=== PATIENT | female | born 1990 | race Caucasian/White ===

== ENCOUNTER 2018-02-19 13:20 | Emergency (ER) | payer SELFPAY ==
[2018-02-19] MEDS ORDERED: Sodium Chloride 0.9% 10 ML Syringe FLUSH PRN (14:09)
[2018-02-19] MEDS ORDERED: Sodium Chloride 0.9% 2.5 ML Syringe FLUSH PRN (14:09)
[2018-02-19] MEDS ORDERED: Lactated Ringers 1,000 ML IV ONE (14:10)
--- NOTE | 2018-02-19 14:13 | EDM.PDOC ---
ED HPI GENERAL MEDICAL PROBLEM - General Chief Complaint: Abdominal Pain Stated Complaint: R SIDE PAIN Time Seen by Provider: 02/19/18 13:44 Source of Information: Reports: Patient History Limitations: Reports: No Limitations - History of Present Illness INITIAL COMMENTS - FREE TEXT/NARRATIVE: History of present illness: []Patient started having right lower abdominal pain yesterday has been worsening with nausea. She states cramping coming in waves nonradiating. Her whole right side she has had a cholecystectomy but still has her appendix. Patient denies any vomiting, diarrhea, fevers, chills. urinary symptoms or vaginal pain. Review of systems: As per history of present illness and below otherwise all systems reviewed and negative. Past medical history: As per history of present illness and as reviewed below otherwise noncontributory. Surgical history: As per history of present illness and as reviewed below otherwise noncontributory. Social history: No reported history of drug or alcohol abuse. Family history: As per history of present illness and as reviewed below otherwise noncontributory. Physical exam: General: Well developed, well nourished in NAD HEENT: Atraumatic, normocephalic, pupils reactive, negative for conjunctival pallor or scleral icterus, mucous membranes moist, throat clear, neck supple, nontender, trachea midline. Lungs: Clear to auscultation, breath sounds equal bilaterally, chest nontender. Heart: S1S2, regular, negative for clicks, rubs, or JVD. Abdomen: Remarkable active bowel sounds Soft, nondistended, tender in the right mid quadrant without rebound or guarding. Negative for masses or hepatosplenomegaly. Negative for costovertebral tenderness. Pelvis: Stable nontender. Genitourinary: Patient currently a menses there is no cervical motion tenderness or masses initiated Rectal: Deferred. Extremities: Atraumatic, negative for cords or calf pain. Neurovascular unremarkable. Neuro: Awake, alert, oriented. Cranial nerves II through XII unremarkable. Cerebellum unremarkable. Motor and sensory unremarkable throughout. Exam nonfocal. Diagnostics: []CBC normal, chemistry normal, UA normal, negative, CT abdomen and pelvis normal appendix no acute findings including no free fluid and normal ovaries Therapeutics: []Morphine, Zofran and IV fluid given with alleviation of pain. Impression: []Gardnerella BV Plan: []Flagyl as directed Tylenol Motrin for pain warm packs to abdomen follow-up with [facility] Definitive disposition and diagnosis as appropriate pending reevaluation and review of above. Right Lower Abdominal Pain Score (Numeric/FACES): 8 - Related Data Allergies Allergy/AdvReac Type Severity Reaction Status Date / Time amoxicillin Allergy Rash Verified 02/19/18 14:00 codeine Allergy Rash Verified 02/19/18 14:00 Home Meds: Home Meds metroNIDAZOLE [Flagyl] 500 mg PO Q12H #20 tab 02/19/18 [Rx] Past Medical History - Past Surgical History GI Surgical History: Reports: Cholecystectomy Social & Family History - Family History Family Medical History: Noncontributory - Tobacco Use Smoking Status *Q: Current Every Day Smoker Years of Tobacco use: 3 Packs/Tins Daily: 0.5 - Caffeine Use Caffeine Use: Reports: Coffee, Energy Drinks, Soda - Recreational Drug Use Recreational Drug Use: No ED ROS GENERAL - Review of Systems Review Of Systems: See Below (See history of present illness) ED EXAM, GI/ABD - Physical Exam Exam: See Below (See history of present illness) Course - Vital Signs Last Recorded V/S: Last Vital Signs Temp 98.1 F 02/19/18 13:54 Pulse 68 02/19/18 14:52 Resp 16 02/19/18 14:52 BP 130/73 02/19/18 14:52 Pulse Ox 99 02/19/18 14:52 - Orders/Labs/Meds Orders: Active Orders 24 hr Category Date Time Status NPO [Nothing Per Oral Diet] [DIET] Diet 02/19/18 Dinner Active CHLAMYDIA AND GONORRHEA BY TMA Stat Lab 02/19/18 16:35 Received HCG QUALITATIVE,URINE [URCHEM] Stat Lab 02/19/18 13:30 Ordered UA W/MICROSCOPIC [URIN] Stat Lab 02/19/18 13:30 Ordered Sodium Chloride 0.9% [Saline Flush] Med 02/19/18 14:09 Active 10 ml FLUSH ASDIRECTED PRN Sodium Chloride 0.9% [Saline Flush] Med 02/19/18 14:09 Active 2.5 ml FLUSH ASDIRECTED PRN Saline Lock Insert [OM.PC] Stat Oth 02/19/18 14:09 Ordered Medication Orders Sodium Chloride (Saline Flush) 10 ml FLUSH ASDIRECTED PRN PRN Reason: Keep Vein Open Sodium Chloride (Saline Flush) 2.5 ml FLUSH ASDIRECTED PRN PRN Reason: Keep Vein Open Labs: Laboratory Tests 02/19/18 02/19/18 02/19/18 Range/Units 13:30 13:30 14:20 WBC 7.93 (4.0-11.0) K/uL RBC 4.59 (4.30-5.90) M/uL Hgb 12.8 (12.0-16.0) g/dL Hct 38.3 (36.0-46.0) % MCV 83.4 (80.0-98.0) fL MCH 27.9 (27.0-32.0) pg MCHC 33.4 (31.0-37.0) g/dL RDW Std Deviation 42.9 (28.0-62.0) fl RDW Coeff of Arlene 14 (11.0-15.0) % Plt Count 281 (150-400) K/uL MPV 9.10 (7.40-12.00) fL Neut % (Auto) 61.4 (48.0-80.0) % Lymph % (Auto) 27.5 (16.0-40.0) % [place] % (Auto) 8.4 (0.0-15.0) % Eos % (Auto) 1.6 (0.0-7.0) % Baso % (Auto) 1.1 (0.0-1.5) % Neut # (Auto) 4.9 (1.4-5.7) K/uL Lymph # (Auto) 2.2 (0.6-2.4) K/uL [place] # (Auto) 0.7 (0.0-0.8) K/uL Eos # (Auto) 0.1 (0.0-0.7) K/uL Baso # (Auto) 0.1 (0.0-0.1) K/uL Nucleated RBC % 0.0 /100WBC Nucleated RBCs # 0 K/uL Sodium (136-145) mmol/L Potassium (3.5-5.1) mmol/L Chloride (98-107) mmol/L Carbon Dioxide (21.0-32.0) mmol/L BUN (7.0-18.0) mg/dL Creatinine (0.6-1.0) mg/dL Est Cr Clr Drug Dosing mL/min Estimated GFR (MDRD) ml/min Glucose (74-106) mg/dL Calcium (8.5-10.1) mg/dL Total Bilirubin (0.2-1.0) mg/dL AST (15-37) IU/L ALT (14-63) IU/L Alkaline Phosphatase (46-116) U/L Total Protein (6.4-8.2) g/dL Albumin (3.4-5.0) g/dL Globulin (2.0-3.5) g/dL Albumin/Globulin Ratio (1.3-2.8) Lipase (73-393) U/L Urine Color YELLOW Urine Appearance CLEAR Urine pH 6.0 (5.0-8.0) Ur Specific [place] <= 1.005 (1.001-1.035) Urine Protein NEGATIVE (NEGATIVE) mg/dL Urine Glucose (UA) NEGATIVE (NEGATIVE) mg/dL Urine Ketones NEGATIVE (NEGATIVE) mg/dL Urine Occult Blood LARGE H (NEGATIVE) Urine Nitrite NEGATIVE (NEGATIVE) Urine Bilirubin NEGATIVE (NEGATIVE) Urine Urobilinogen 0.2 (<2.0) EU/dL Ur Leukocyte Esterase NEGATIVE (NEGATIVE) Urine RBC 4-7 (0-2/HPF) Urine WBC 0-1 (0-5/HPF) Ur Epithelial Cells FEW (NONE-FEW) Urine Bacteria RARE (NEGATIVE) Urine HCG, Qual NEGATIVE (NEGATIVE) Roopa species DNA (NEGATIVE) Gardnerella DNA Probe (NEGATIVE) Trichomonas DNA Probe (NEGATIVE) 02/19/18 02/19/18 Range/Units 14:20 16:35 WBC (4.0-11.0) K/uL RBC (4.30-5.90) M/uL Hgb (12.0-16.0) g/dL Hct (36.0-46.0) % MCV (80.0-98.0) fL MCH (27.0-32.0) pg MCHC (31.0-37.0) g/dL RDW Std Deviation (28.0-62.0) fl RDW Coeff of Arlene (11.0-15.0) % Plt Count (150-400) K/uL MPV (7.40-12.00) fL Neut % (Auto) (48.0-80.0) % Lymph % (Auto) (16.0-40.0) % [place] % (Auto) (0.0-15.0) % Eos % (Auto) (0.0-7.0) % Baso % (Auto) (0.0-1.5) % Neut # (Auto) (1.4-5.7) K/uL Lymph # (Auto) (0.6-2.4) K/uL [place] # (Auto) (0.0-0.8) K/uL Eos # (Auto) (0.0-0.7) K/uL Baso # (Auto) (0.0-0.1) K/uL Nucleated RBC % /100WBC Nucleated RBCs # K/uL Sodium 139 (136-145) mmol/L Potassium 4.1 (3.5-5.1) mmol/L Chloride 107 (98-107) mmol/L Carbon Dioxide 26.1 (21.0-32.0) mmol/L BUN 9 (7.0-18.0) mg/dL Creatinine 0.7 (0.6-1.0) mg/dL Est Cr Clr Drug Dosing 106.70 mL/min Estimated GFR (MDRD) > 60.0 ml/min Glucose 86 (74-106) mg/dL Calcium 8.7 (8.5-10.1) mg/dL Total Bilirubin 0.2 (0.2-1.0) mg/dL AST 14 L (15-37) IU/L ALT 21 (14-63) IU/L Alkaline Phosphatase 56 (46-116) U/L Total Protein 6.7 (6.4-8.2) g/dL Albumin 3.3 L (3.4-5.0) g/dL Globulin 3.4 (2.0-3.5) g/dL Albumin/Globulin Ratio 1.0 L (1.3-2.8) Lipase 88 (73-393) U/L Urine Color Urine Appearance Urine pH (5.0-8.0) Ur Specific [place] (1.001-1.035) Urine Protein (NEGATIVE) mg/dL Urine Glucose (UA) (NEGATIVE) mg/dL Urine Ketones (NEGATIVE) mg/dL Urine Occult Blood (NEGATIVE) Urine Nitrite (NEGATIVE) Urine Bilirubin (NEGATIVE) Urine Urobilinogen (<2.0) EU/dL Ur Leukocyte Esterase (NEGATIVE) Urine RBC (0-2/HPF) Urine WBC (0-5/HPF) Ur Epithelial Cells (NONE-FEW) Urine Bacteria (NEGATIVE) Urine HCG, Qual (NEGATIVE) Roopa species DNA NEGATIVE (NEGATIVE) Gardnerella DNA Probe POSITIVE H (NEGATIVE) Trichomonas DNA Probe NEGATIVE (NEGATIVE) Meds: Medications Generic Name Dose Route Start Last Admin Trade Name Freq PRN Reason Stop Dose Admin Sodium Chloride 10 ml 02/19/18 14:09 Saline Flush FLUSH ASDIRECTED PRN Keep Vein Open Sodium Chloride 2.5 ml 02/19/18 14:09 Saline Flush FLUSH ASDIRECTED PRN Keep Vein Open Discontinued Medications Generic Name Dose Route Start Last Admin Trade Name Freq PRN Reason Stop Dose Admin Lactated Ringer's 1,000 mls @ 999 mls/hr 02/19/18 14:10 02/19/18 14:39 Ringers, Lactated IV 02/19/18 15:10 999 mls/hr .BOLUS ONE Administration Iopamidol 100 ml 02/19/18 15:38 02/19/18 15:39 Isovue Multipack-370 (76%) IVPUSH 02/19/18 15:39 100 ml ONETIME ONE Administration Morphine Sulfate 4 mg 02/19/18 14:29 02/19/18 14:44 Morphine IVPUSH 02/19/18 14:30 4 mg ONETIME ONE Administration Ondansetron HCl 4 mg 02/19/18 14:29 02/19/18 14:44 Zofran IVPUSH 02/19/18 14:30 4 mg ONETIME ONE Administration Departure - Departure Time of Disposition: 18:00 Disposition: Home, Self-Care 01 Condition: Good Clinical Impression: Bacterial vaginosis - Discharge Information Prescriptions: metroNIDAZOLE [Flagyl] 500 mg PO Q12H #20 tab Referrals: PCP,None [Primary Care Provider] - Forms: ED Department Discharge Additional Instructions: The following information is given to patients seen in the emergency department who are being discharged to home. This information is to outline your options for follow-up care. We provide all patients seen in our emergency department with a follow-up referral. The need for follow-up, as well as the timing and circumstances, are variable depending upon the specifics of your emergency department visit. If you don't have a primary care physician on staff, we will provide you with a referral. We always advise you to contact your personal physician following an emergency department visit to inform them of the circumstance of the visit and for follow-up with them and/or the need for any referrals to a consulting specialist. The emergency department will also refer you to a specialist when appropriate. This referral assures that you have the opportunity for follow-up care with a specialist. All of these measure are taken in an effort to provide you with optimal care, which includes your follow-up. Under all circumstances we always encourage you to contact your private physician who remains a resource for coordinating your care. When calling for follow-up care, please make the office aware that this follow-up is from your recent emergency room visit. If for any reason you are refused follow-up, please contact the [facility] Emergency Department at and asked to speak to the emergency department charge nurse. Flagyl as directed Tylenol and Motrin for pain warm packs to abdomen follow-up with [facility] - [facility] [address] [place] [address] - My Orders Last 24 Hours: My Active Orders 02/19/18 13:30 HCG QUALITATIVE,URINE [URCHEM] Stat UA W/MICROSCOPIC [URIN] Stat 02/19/18 14:09 Sodium Chloride 0.9% [Saline Flush] 10 ml FLUSH ASDIRECTED PRN Sodium Chloride 0.9% [Saline Flush] 2.5 ml FLUSH ASDIRECTED PRN Saline Lock Insert [OM.PC] Stat 02/19/18 16:35 CHLAMYDIA AND GONORRHEA BY TMA Stat 02/19/18 Dinner NPO [Nothing Per Oral Diet] [DIET] - Assessment/Plan Last 24 Hours: My Active Orders 02/19/18 13:30 HCG QUALITATIVE,URINE [URCHEM] Stat UA W/MICROSCOPIC [URIN] Stat 02/19/18 14:09 Sodium Chloride 0.9% [Saline Flush] 10 ml FLUSH ASDIRECTED PRN Sodium Chloride 0.9% [Saline Flush] 2.5 ml FLUSH ASDIRECTED PRN Saline Lock Insert [OM.PC] Stat 02/19/18 16:35 CHLAMYDIA AND GONORRHEA BY TMA Stat 02/19/18 Dinner NPO [Nothing Per Oral Diet] [DIET]
[2018-02-19] MEDS ORDERED: Ondansetron 4 MG/2 ML SDV IVPUSH ONE (14:29)
[2018-02-19] MEDS ORDERED: Morphine 4 MG/ML Syringe IVPUSH ONE (14:29)
[2018-02-19 14:44] LABS: CHLORIDE,CL 107 mmol/L (98-107); SODIUM,NA 139 mmol/L (136-145)
[2018-02-19] MEDS ORDERED: Iopamidol 755 MG/ML 500 ML Multipack Bottle IVPUSH ONE (15:38)
--- NOTE | 2018-02-19 16:01 | CT ---
CT of the abdomen and pelvis with contrast. HISTORY: Pain TECHNIQUE: Axial CT images were obtained of the abdomen and pelvis following administration of 100 mL of Isovue-370 in the right hand without complication. Coronal and sagittal reconstructions obtained. FINDINGS: The lung bases are clear, no pleural effusion. The liver, spleen, adrenal glands, and pancreas appear normal. Cholecystectomy. No retroperitoneal ly mphadenopathy or abdominal ascites. The kidneys enhance and function symmetrically without evidence of obstructive uropathy. The large and small bowel are normal in caliber without evidence of obstruction. No focal pericolonic inflammation or stranding. The urinary bladder is normal. No pelvic lymphadenopathy or free pelvic f luid. Uterus and ovaries appear normal. No suspicious osseous abnormalities identified. IMPRESSION: No acute findings within the abdomen or pelvis.
== END 2018-02-19 18:16 | disposition home or self-care (01) ==
LOC: MW.ED 13:20
DX: N76.0 Acute vaginitis (principal); B96.89 Other specified bacterial agents as the cause of diseases classified elsewhere; F17.210 Nicotine dependence, cigarettes, uncomplicated; Z90.49 Acquired absence of other specified parts of digestive tract; Z88.1 Allergy status to other antibiotic agents; Z88.5 Allergy status to narcotic agent
CPT/HCPCS: 36415; 74177; 80053; 81001; 81025; 83690; 85025; 87480; 87491; 87510; 87591; 87660; 96365; 96375; 99284; J2270; J2405; J7120; Q9967; 99283

== ENCOUNTER 2018-02-25 10:26 | Emergency (ER) | payer SELFPAY ==
[2018-02-25] MEDS: Sodium Chloride 0.9% 500 ML IV SCH (10:54)
[2018-02-25] MEDS: Ondansetron 4 MG/2 ML SDV IVPUSH ONE (10:54)
--- NOTE | 2018-02-25 11:35 | EDM.PDOC ---
ED HPI GENERAL MEDICAL PROBLEM - General Chief Complaint: Gastrointestinal Problem Stated Complaint: VOMITING Time Seen by Provider: 02/25/18 11:33 Source of Information: Reports: Patient - History of Present Illness INITIAL COMMENTS - FREE TEXT/NARRATIVE: HISTORY AND PHYSICAL: History of present illness: [Patient presents with vomiting and diarrhea over the last day or 2, she states she has been vomiting blood however there is been no complaint of nausea or vomiting here in the emergency room on an extended stay. She has had a couple of loose stools and guaiac testing was positive for trace blood no fever chills sweats no chest pain shortness breath headache dizziness or palpitation no urine symptoms ] Review of systems: As per history of present illness and below otherwise all systems reviewed and negative. Past medical history: As per history of present illness and as reviewed below otherwise noncontributory. Surgical history: As per history of present illness and as reviewed below otherwise noncontributory. Social history: No reported history of drug or alcohol abuse. Family history: As per history of present illness and as reviewed below otherwise noncontributory. Physical exam: HEENT: Atraumatic, normocephalic, pupils reactive, negative for conjunctival pallor or scleral icterus, mucous membranes moist, throat clear, neck supple, nontender, trachea midline. Lungs: Clear to auscultation, breath sounds equal bilaterally, chest nontender. Heart: S1S2, regular, negative for clicks, rubs, or JVD. Abdomen: Soft, nondistended, tender right and left lower quadrant mild guarding no rebound Negative for masses or hepatosplenomegaly. Negative for costovertebral tenderness. Pelvis: Stable nontender. Genitourinary: Deferred. Rectal: guaiac positive external exam no mass scarred lesion internal exam no mass scar or lesion remities: Atraumatic, negative for cords or calf pain. Neurovascular unremarkable. Neuro: Awake, alert, oriented. Cranial nerves II through XII unremarkable. Cerebellum unremarkable. Motor and sensory unremarkable throughout. Exam nonfocal. Diagnostics: [CBC CMP UA hCG urine culture INR CT abdomen pelvis with contrast] Guaiac stool cultures ova and parasites C. difficile Therapeutics: [Normal saline 500 mL Proton X 80 mg IV Zofran 8 mg IV Cipro 500 by mouth twice a day #20 no refill Zofran Omeprazole ] Impression Abdominal pain Vomiting Diarrhea gastroenteritis Trace positive guaiac UTI Definitive disposition and diagnosis as appropriate pending reevaluation and review of above. Abdomen Pain Score (Numeric/FACES): 6 - Related Data Allergies Allergy/AdvReac Type Severity Reaction Status Date / Time amoxicillin Allergy Rash Verified 02/25/18 10:41 codeine Allergy Rash Verified 02/25/18 10:41 Home Meds: Home Meds metroNIDAZOLE [Flagyl] 500 mg PO Q12H #20 tab 02/19/18 [Rx] Past Medical History - Past Surgical History GI Surgical History: Reports: Cholecystectomy Social & Family History - Family History Family Medical History: Noncontributory - Tobacco Use Smoking Status *Q: Former Smoker Years of Tobacco use: 3 Packs/Tins Daily: 0.5 Used Tobacco, but Quit: Yes Month/Year Tobacco Last Used: 2.5 years quit - Caffeine Use Caffeine Use: Reports: Coffee, Energy Drinks, Soda, Tea - Recreational Drug Use Recreational Drug Use: Yes Drug Use in Last 12 Months: Yes Recreational Drug Use Frequency: Socially ED ROS GENERAL - Review of Systems Review Of Systems: ROS reveals no pertinent complaints other than HPI. ED EXAM, GENERAL - Physical Exam Exam: See Below Course - Vital Signs Last Recorded V/S: Last Vital Signs Temp 98.7 F 02/25/18 10:42 Pulse 87 02/25/18 10:42 Resp 16 02/25/18 10:42 BP 121/70 02/25/18 10:42 Pulse Ox 98 02/25/18 10:42 - Orders/Labs/Meds Orders: Active Orders 24 hr Category Date Time Status CULTURE STOOL + CAMPY+SHIGATOX [RM] Stat Lab 02/25/18 11:33 Ordered CULTURE URINE [RM] Stat Lab 02/25/18 10:55 Ordered Clostridium Difficile [CDIFF TOX A+B] [OP] Stat Lab 02/25/18 11:36 Ordered Guaiac [OCCULT BLOOD DIAGNOSTIC] [OP] Stat Lab 02/25/18 11:36 Ordered HCG QUALITATIVE,URINE [URCHEM] Stat Lab 02/25/18 10:55 Ordered OVA & PARASITES BY IMMUNOASSAY [MREF] Stat Lab 02/25/18 11:33 Received UA W/MICROSCOPIC [URIN] Stat Lab 02/25/18 10:55 Ordered Sodium Chloride 0.9% [Normal Saline] 500 ml Med 02/25/18 10:45 Active IV STAT Medication Orders Sodium Chloride (Normal Saline) 500 mls @ 999 mls/hr IV STAT REBEKAH Last Admin: 02/25/18 10:54 Dose: 999 mls/hr Labs: Laboratory Tests 02/25/18 02/25/18 02/25/18 Range/Units 10:55 10:55 10:55 WBC 6.58 (4.0-11.0) K/uL RBC 5.07 (4.30-5.90) M/uL Hgb 14.1 (12.0-16.0) g/dL Hct 41.8 (36.0-46.0) % MCV 82.4 (80.0-98.0) fL MCH 27.8 (27.0-32.0) pg MCHC 33.7 (31.0-37.0) g/dL RDW Std Deviation 42.9 (28.0-62.0) fl RDW Coeff of Arlene 14 (11.0-15.0) % Plt Count 307 (150-400) K/uL MPV 9.20 (7.40-12.00) fL Add Manual Diff YES Neutrophils % (Manual) 56 (48.0-80.0) % Band Neutrophils % 2 % Lymphocytes % (Manual) 30 (16.0-40.0) % Monocytes % (Manual) 10 (0.0-15.0) % Eosinophils % (Manual) 1 (0.0-7.0) % Basophils % (Manual) 1 (0.0-1.5) % Nucleated RBC % 0.0 /100WBC Absolute Seg Neuts 3.7 (1.4-5.7) Band Neutrophils # 0.1 Lymphocytes # (Manual) 2.0 (0.6-2.4) Monocytes # (Manual) 0.7 (0.0-0.8) Eosinophils # (Manual) 0.1 (0.0-0.7) Basophils # (Manual) 0.1 (0.0-0.1) Nucleated RBCs # 0 K/uL INR Sodium (136-145) mmol/L Potassium (3.5-5.1) mmol/L Chloride (98-107) mmol/L Carbon Dioxide (21.0-32.0) mmol/L BUN (7.0-18.0) mg/dL Creatinine (0.6-1.0) mg/dL Est Cr Clr Drug Dosing mL/min Estimated GFR (MDRD) ml/min Glucose (74-106) mg/dL Calcium (8.5-10.1) mg/dL Total Bilirubin (0.2-1.0) mg/dL AST (15-37) IU/L ALT (14-63) IU/L Alkaline Phosphatase (46-116) U/L Total Protein (6.4-8.2) g/dL Albumin (3.4-5.0) g/dL Globulin (2.0-3.5) g/dL Albumin/Globulin Ratio (1.3-2.8) Urine Color YELLOW Urine Appearance CLEAR Urine pH 5.5 (5.0-8.0) Ur Specific [place] >= 1.030 (1.001-1.035) Urine Protein TRACE (NEGATIVE) mg/dL Urine Glucose (UA) NEGATIVE (NEGATIVE) mg/dL Urine Ketones NEGATIVE (NEGATIVE) mg/dL Urine Occult Blood MODERATE (NEGATIVE) Urine Nitrite NEGATIVE (NEGATIVE) Urine Bilirubin NEGATIVE (NEGATIVE) Urine Urobilinogen 0.2 (<2.0) EU/dL Ur Leukocyte Esterase TRACE (NEGATIVE) Urine RBC 0-2 (0-2/HPF) Urine WBC 0-2 (0-5/HPF) Ur Epithelial Cells MANY (NONE-FEW) Urine Bacteria FEW (NEGATIVE) Urine HCG, Qual NEGATIVE (NEGATIVE) 02/25/18 02/25/18 Range/Units 10:55 10:55 WBC (4.0-11.0) K/uL RBC (4.30-5.90) M/uL Hgb (12.0-16.0) g/dL Hct (36.0-46.0) % MCV (80.0-98.0) fL MCH (27.0-32.0) pg MCHC (31.0-37.0) g/dL RDW Std Deviation (28.0-62.0) fl RDW Coeff of Arlene (11.0-15.0) % Plt Count (150-400) K/uL MPV (7.40-12.00) fL Add Manual Diff Neutrophils % (Manual) (48.0-80.0) % Band Neutrophils % % Lymphocytes % (Manual) (16.0-40.0) % Monocytes % (Manual) (0.0-15.0) % Eosinophils % (Manual) (0.0-7.0) % Basophils % (Manual) (0.0-1.5) % Nucleated RBC % /100WBC Absolute Seg Neuts (1.4-5.7) Band Neutrophils # Lymphocytes # (Manual) (0.6-2.4) Monocytes # (Manual) (0.0-0.8) Eosinophils # (Manual) (0.0-0.7) Basophils # (Manual) (0.0-0.1) Nucleated RBCs # K/uL INR 1.02 Sodium 140 (136-145) mmol/L Potassium 4.0 (3.5-5.1) mmol/L Chloride 107 (98-107) mmol/L Carbon Dioxide 23.8 (21.0-32.0) mmol/L BUN 14 (7.0-18.0) mg/dL Creatinine 0.8 (0.6-1.0) mg/dL Est Cr Clr Drug Dosing 89.60 mL/min Estimated GFR (MDRD) > 60.0 ml/min Glucose 96 (74-106) mg/dL Calcium 8.6 (8.5-10.1) mg/dL Total Bilirubin 0.2 (0.2-1.0) mg/dL AST 49 H (15-37) IU/L ALT 103 H (14-63) IU/L Alkaline Phosphatase 66 (46-116) U/L Total Protein 7.8 (6.4-8.2) g/dL Albumin 3.6 (3.4-5.0) g/dL Globulin 4.2 H (2.0-3.5) g/dL Albumin/Globulin Ratio 0.9 L (1.3-2.8) Urine Color Urine Appearance Urine pH (5.0-8.0) Ur Specific [place] (1.001-1.035) Urine Protein (NEGATIVE) mg/dL Urine Glucose (UA) (NEGATIVE) mg/dL Urine Ketones (NEGATIVE) mg/dL Urine Occult Blood (NEGATIVE) Urine Nitrite (NEGATIVE) Urine Bilirubin (NEGATIVE) Urine Urobilinogen (<2.0) EU/dL Ur Leukocyte Esterase (NEGATIVE) Urine RBC (0-2/HPF) Urine WBC (0-5/HPF) Ur Epithelial Cells (NONE-FEW) Urine Bacteria (NEGATIVE) Urine HCG, Qual (NEGATIVE) Meds: Medications Generic Name Dose Route Start Last Admin Trade Name Freq PRN Reason Stop Dose Admin Sodium Chloride 500 mls @ 999 mls/hr 02/25/18 10:45 02/25/18 10:54 Normal Saline IV 999 mls/hr STAT REBEKAH Administration Discontinued Medications Generic Name Dose Route Start Last Admin Trade Name Freq PRN Reason Stop Dose Admin Morphine Sulfate 2 mg 02/25/18 12:58 02/25/18 13:05 Morphine IVPUSH 02/25/18 12:59 2 mg ONETIME ONE Administration Ondansetron HCl 8 mg 02/25/18 10:39 02/25/18 10:54 Zofran IVPUSH 02/25/18 10:40 8 mg ONETIME ONE Administration Pantoprazole Sodium 80 mg 02/25/18 11:25 02/25/18 11:40 Protonix Iv IVPUSH 02/25/18 11:26 80 mg .BOLUS ONE Administration Departure - Departure Time of Disposition: 13:42 Disposition: Home, Self-Care 01 Condition: Good Clinical Impression: Gastroenteritis, UTI, Urinary tract infectious disease - Discharge Information Referrals: PCP,None [Primary Care Provider] - Forms: ED Department Discharge Additional Instructions: Medication as prescribed Return if symptoms persist or worsen Follow-up with primary care in 2 weeks sooner as needed The following information is given to patients seen in the emergency department who are being discharged to home. This information is to outline your options for follow-up care. We provide all patients seen in our emergency department with a follow-up referral. The need for follow-up, as well as the timing and circumstances, are variable depending upon the specifics of your emergency department visit. If you don't have a primary care physician on staff, we will provide you with a referral. We always advise you to contact your personal physician following an emergency department visit to inform them of the circumstance of the visit and for follow-up with them and/or the need for any referrals to a consulting specialist. The emergency department will also refer you to a specialist when appropriate. This referral assures that you have the opportunity for follow-up care with a specialist. All of these measure are taken in an effort to provide you with optimal care, which includes your follow-up. Under all circumstances we always encourage you to contact your private physician who remains a resource for coordinating your care. When calling for follow-up care, please make the office aware that this follow-up is from your recent emergency room visit. If for any reason you are refused follow-up, please contact the [facility] emergency department at and asked to speak to the emergency department charge nurse. - My Orders Last 24 Hours: My Active Orders 02/25/18 10:45 Sodium Chloride 0.9% [Normal Saline] 500 ml IV STAT 02/25/18 10:55 CULTURE URINE [RM] Stat HCG QUALITATIVE,URINE [URCHEM] Stat UA W/MICROSCOPIC [URIN] Stat 02/25/18 11:33 CULTURE STOOL + CAMPY+SHIGATOX [RM] Stat OVA & PARASITES BY IMMUNOASSAY [MREF] Stat 02/25/18 11:36 Clostridium Difficile [CDIFF TOX A+B] [OP] Stat Guaiac [OCCULT BLOOD DIAGNOSTIC] [OP] Stat - Assessment/Plan Last 24 Hours: My Active Orders 02/25/18 10:45 Sodium Chloride 0.9% [Normal Saline] 500 ml IV STAT 02/25/18 10:55 CULTURE URINE [RM] Stat HCG QUALITATIVE,URINE [URCHEM] Stat UA W/MICROSCOPIC [URIN] Stat 02/25/18 11:33 CULTURE STOOL + CAMPY+SHIGATOX [RM] Stat OVA & PARASITES BY IMMUNOASSAY [MREF] Stat 02/25/18 11:36 Clostridium Difficile [CDIFF TOX A+B] [OP] Stat Guaiac [OCCULT BLOOD DIAGNOSTIC] [OP] Stat
[2018-02-25 11:40] LABS: CHLORIDE,CL 107 mmol/L (98-107); SODIUM,NA 140 mmol/L (136-145)
[2018-02-25] MEDS: Pantoprazole 40 MG Vial IVPUSH ONE (11:40)
[2018-02-25] MEDS: Morphine 4 MG/ML Syringe IVPUSH ONE (13:05)
--- NOTE | 2018-02-25 13:32 | CT ---
CT of the abdomen and pelvis with contrast. HISTORY: Pain TECHNIQUE: Axial CT images were obtained of the abdomen and pelvis following administration of 100 mL of Isovue-370 in the left antecubital fossa without complication. Coronal and sagittal reconstructio ns obtained. FINDINGS: The lung bases are clear, no pleural effusion. The liver, spleen, adrenal glands, and pancreas appear normal. Cholecystectomy clips are noted. No bu lky retroperitoneal lymphadenopathy or abdominal ascites. The kidneys enhance and function symmetrically without evidence of obstructive uropathy. The large and small bowel are normal in caliber without evidence of obstruction. No focal pericolonic inflammation or stranding. The appendix is normal. Urinary bladder is decompressed. No pelvic lympha denopathy or free pelvic fluid. No suspicious osseous abnormalities identified. IMPRESSION: No acute findings demonstrated within the abdomen or pelvis.
[2018-02-25] MEDS: Iopamidol 755 MG/ML 500 ML Multipack Bottle IVPUSH STA (14:11)
== END 2018-02-25 13:58 | disposition home or self-care (01) ==
LOC: MW.ED 10:26
DX: K52.9 Noninfective gastroenteritis and colitis, unspecified (principal); N39.0 Urinary tract infection, site not specified; R19.5 Other fecal abnormalities; Z87.891 Personal history of nicotine dependence; Z88.1 Allergy status to other antibiotic agents; Z88.5 Allergy status to narcotic agent
CPT/HCPCS: 36415; 74177; 80053; 81001; 81025; 82272; 85025; 85610; 87046; 87086; 87324; 87328; 87329; 96361; 96374; 96375; 99284; C9113; J2270; J2405; J7040; Q9967; 87899; 99283

== ENCOUNTER 2018-07-07 20:23 | Emergency (ER) | payer MEDICAID ==
[2018-07-07] MEDS ORDERED: cefTRIAXone 250 MG in Lidocaine 1% 1 ML IM ONE (20:26)
[2018-07-07] MEDS ORDERED: Azithromycin 250 MG Tab PO ONE (20:26)
--- NOTE | 2018-07-07 20:39 | EDM.PDOC ---
ED HPI GENERAL MEDICAL PROBLEM - General Chief Complaint: General Stated Complaint: STD Time Seen by Provider: 07/07/18 20:32 Source of Information: Reports: Patient History Limitations: Reports: No Limitations - History of Present Illness INITIAL COMMENTS - FREE TEXT/NARRATIVE: HISTORY AND PHYSICAL: History of present illness: Patient is a 27-year-old female who presents to the emergency room with concerns of an STD exposure. She states that she received a phone call from a gentleman she had sexual intercourse with approximately 6 weeks ago and was informed that he "had the drip". She states she is asymptomatic but is concerned she may have an STD. She denies any fever, chills, chest pain, shortness of breath or cough. Denies any abdominal pain, nausea, vomiting, diarrhea or constipation. She has no vaginal discharge, itching, lesions or other. Denies any dysuria or any chance of . Review of systems: As per history of present illness and below otherwise all systems reviewed and negative. Past medical history: As per history of present illness and as reviewed below otherwise noncontributory. Surgical history: As per history of present illness and as reviewed below otherwise noncontributory. Social history: No reported history of drug or alcohol abuse. Family history: As per history of present illness and as reviewed below otherwise noncontributory. Physical exam: General: Well-developed and well-nourished 27-year-old female. Alert and oriented. Nontoxic appearing and in no acute distress. HEENT: Atraumatic, normocephalic, pupils equal and reactive bilaterally, negative for conjunctival pallor or scleral icterus, mucous membranes moist, throat clear, neck supple, nontender, trachea midline. No drooling or trismus noted. No meningeal signs Lungs: Clear to auscultation, breath sounds equal bilaterally, chest nontender. Heart: S1S2, regular rate and rhythm without overt murmur Abdomen: Soft, nondistended, nontender. Negative for masses or hepatosplenomegaly. Negative for costovertebral tenderness. Pelvis: Stable nontender. Genitourinary: Deferred. Rectal: Deferred. Skin: Intact, warm, dry. No lesions or rashes noted. Extremities: Atraumatic, negative for cords or calf pain. Neurovascular unremarkable. Neuro: Awake, alert, oriented. Cranial nerves II through XII unremarkable. Cerebellum unremarkable. Motor and sensory unremarkable throughout. Exam nonfocal. Notes: Physical examination is within normal limits. We did discuss lab is a send out and she will receive a phone call if any results are positive. We'll treat her prophylactically with Rocephin and azithromycin. She does have an allergy to amoxicillin which resulted in a rash but she is agreeable to receiving the IM Rocephin. Supportive care measures were reviewed and discussed. She voices understanding and is agreeable to plan of care. Denies any further questions or concerns at this time. Diagnostics: Gonorrhea/chlamydia Therapeutics: Rocephin IM, Azithromycin PO Prescription: None Impression: STD exposure Plan: 1. Abstain for sexual intercourse until you have your results 2. As we discussed, the gonorrhea and chlamydia labs are a send out. We do not have results for 3 days. You will receive a phone call if it is positive. If you desire further STD testing you can go to the [facility] 3. Follow-up with the primary care provider further evaluation and management. Return to the ED as needed and as discussed. Definitive disposition and diagnosis as appropriate pending reevaluation and review of above. - Related Data Allergies Allergy/AdvReac Type Severity Reaction Status Date / Time amoxicillin Allergy Rash Verified 02/25/18 10:41 codeine Allergy Rash Verified 02/25/18 10:41 Home Meds: Home Meds metroNIDAZOLE [Flagyl] 500 mg PO Q12H #20 tab 02/19/18 [Rx] Past Medical History - Past Surgical History GI Surgical History: Reports: Cholecystectomy Social & Family History - Family History Family Medical History: Noncontributory - Caffeine Use Caffeine Use: Reports: Coffee, Energy Drinks, Soda, Tea ED ROS GENERAL - Review of Systems Review Of Systems: ROS reveals no pertinent complaints other than HPI. ED EXAM, GENERAL - Physical Exam Exam: See Below (See dictation) Course - Orders/Labs/Meds Orders: Active Orders 24 hr Category Date Time Status CHLAMYDIA AND GONORRHEA BY [facility] Stat Lab 07/07/18 20:26 Ordered Meds: Medications Discontinued Medications Generic Name Dose Route Start Last Admin Trade Name Freq PRN Reason Stop Dose Admin Azithromycin 1,000 mg 07/07/18 20:26 Zithromax PO 07/07/18 20:27 ONETIME ONE Ceftriaxone Sodium 250 mg/ 1 mls @ 1 mls/sec 07/07/18 20:26 Lidocaine HCl IM 07/07/18 20:27 ONETIME ONE Departure - Departure Time of Disposition: 20:39 Disposition: Home, Self-Care 01 Clinical Impression: STD exposure - Discharge Information Instructions: Sexually Transmitted Disease Referrals: PCP,None [Primary Care Provider] - Additional Instructions: The following information is given to patients seen in the emergency department who are being discharged to home. This information is to outline your options for follow-up care. We provide all patients seen in our emergency department with a follow-up referral. The need for follow-up, as well as the timing and circumstances, are variable depending upon the specifics of your emergency department visit. If you don't have a primary care physician on staff, we will provide you with a referral. We always advise you to contact your personal physician following an emergency department visit to inform them of the circumstance of the visit and for follow-up with them and/or the need for any referrals to a consulting specialist. The emergency department will also refer you to a specialist when appropriate. This referral assures that you have the opportunity for follow-up care with a specialist. All of these measure are taken in an effort to provide you with optimal care, which includes your follow-up. Under all circumstances we always encourage you to contact your private physician who remains a resource for coordinating your care. When calling for follow-up care, please make the office aware that this follow-up is from your recent emergency room visit. If for any reason you are refused follow-up, please contact the [facility] Emergency Department at and asked to speak to the emergency department charge nurse. [facility] [address] [place] [id number] 1. Abstain for sexual intercourse until you have your results 2. As we discussed, the gonorrhea and chlamydia labs are a send out. We do not have results for 3 days. You will receive a phone call if it is positive. If you desire further STD testing you can go to the [facility] 3. Follow-up with the primary care provider further evaluation and management. Return to the ED as needed and as discussed. - My Orders Last 24 Hours: My Active Orders 07/07/18 20:26 CHLAMYDIA AND GONORRHEA BY [facility] Stat - Assessment/Plan Last 24 Hours: My Active Orders 07/07/18 20:26 CHLAMYDIA AND GONORRHEA BY [facility] Stat
== END 2018-07-07 21:00 | disposition home or self-care (01) ==
LOC: MW.ED 20:23
DX: Z20.2 Contact with and (suspected) exposure to infections with a predominantly sexual mode of transmission (principal)
CPT/HCPCS: 87491; 87591; 96372; 99283; A9270; J0696; J2001; 99282

== ENCOUNTER 2018-07-18 17:07 | Emergency (ER) | payer MEDICAID ==
--- NOTE | 2018-07-18 17:48 | EDM.PDOC ---
ED HPI GENERAL MEDICAL PROBLEM - General Chief Complaint: ENT Problem Stated Complaint: PT HAS SORE THROAT Time Seen by Provider: 07/18/18 17:44 Source of Information: Reports: Patient History Limitations: Reports: No Limitations - History of Present Illness INITIAL COMMENTS - FREE TEXT/NARRATIVE: HISTORY AND PHYSICAL: [] 28-year-old female presenting with complaints of sore throat with her cold History of Present Illness: []She has been sick for the last 4 days Review of Systems: As per history of present illness and below otherwise all systems reviewed and negative. Past medical history: As per history of present illness and as reviewed below otherwise noncontributory. Surgical history: As per history of present illness and as reviewed below otherwise noncontributory. Social history: No reported history of drug or alcohol abuse. Family history: As per history of present illness and as reviewed below otherwise noncontributory. Physical exam: Alert and oriented female answering questions appropriately without any shortness of breath she is nontoxic in appearance. HEENT: Atraumatic, normocehpalic, pupils reactive, negative for conjunctival pallor or scleral icterus, mucous membranes moist, throat clear, neck supple, nontender, trachea midline. Large amount of mucus from her nose. Tympanic membranes without erythema. Mild erythema in one tonsil enlarged. Lungs: Clear to auscultation, breath sounds equal bilaterally, chest non tender. Heart: S1S2, regular, negative for clicks, rubs, or JVD. Abdomen: Soft, nondistended, nontender. Negative for masses or hepatossplenmegaly. Negative for costovertebral tenderness. Pelvis: Stable nontender. Genitourinary: Deferred. Rectal: Deferred Extremities: Atraumatic, negative for cords or calf pain. Neurovascular unremarkable. Neuro: Awake, alert, oriented. Cranial nerves II through XII unremarkable. Cerebellum unremarkable. Motor and sensory unremarkable throughout. Exam nonfocal. Discussed that all of these things or viral strep is negative Diagnostics: [] Strep negative Therapeutics: [] Impression: []Upper respiratory infection Plan: []Home Over The counter medications for discomfort Benadryl Follow-up with your primary care provider if not improving by next week Return to the emergency department as directed and discussed Definitive disposition and diagnosis as appropriate pending reevaluation and review of above. throat Pain Score (Numeric/FACES): 6 - Related Data Allergies Allergy/AdvReac Type Severity Reaction Status Date / Time amoxicillin Allergy Rash Verified 07/18/18 17:18 codeine Allergy Rash Verified 07/18/18 17:18 Home Meds: Home Meds . [No Known Home Meds] 07/07/18 [History] Past Medical History - Past Health History Medical/Surgical History: Denies Medical/Surgical History - Past Surgical History GI Surgical History: Reports: Cholecystectomy Social & Family History - Family History Family Medical History: Noncontributory - Tobacco Use Smoking Status *Q: Current Every Day Smoker Years of Tobacco use: 2 Packs/Tins Daily: 0.3 - Caffeine Use Caffeine Use: Reports: Coffee, Energy Drinks, Soda, Tea - Recreational Drug Use Recreational Drug Use: No ED ROS ENT - Review of Systems Review Of Systems: ROS reveals no pertinent complaints other than HPI. ED EXAM, ENT - Physical Exam Exam: See Below (see dictation) Course - Vital Signs Last Recorded V/S: Last Vital Signs Temp 36.4 C 07/18/18 17:18 Pulse 91 07/18/18 17:18 Resp 20 07/18/18 17:18 BP 151/88 H 07/18/18 17:18 Pulse Ox 99 07/18/18 17:18 - Orders/Labs/Meds Orders: Active Orders 24 hr Category Date Time Status CULTURE STREP A CONFIRMATION [] Stat Lab 07/18/18 17:15 Results STREP SCRN A RAPID W CULT CONF [RM] Stat Lab 07/18/18 17:15 Ordered Departure - Departure Time of Disposition: 17:47 Disposition: Home, Self-Care 01 Condition: Good Clinical Impression: Upper respiratory infection Qualifiers: URI type: unspecified URI Qualified Code(s): J06.9 - Acute upper respiratory infection, unspecified - Discharge Information *PRESCRIPTION DRUG MONITORING PROGRAM REVIEWED*: Not Applicable *COPY OF PRESCRIPTION DRUG MONITORING REPORT IN PATIENT IVON: Not Applicable Instructions: Viral Respiratory Infection, [id number] Referrals: PCP,None [Primary Care Provider] - Additional Instructions: The following information is given to patients seen in the emergency department who are being discharged to home. This information is to outline your options for follow-up care. We provide all patients seen in our emergency department with a follow-up referral. The need for follow-up, as well as the timing and circumstances, are variable depending upon the specifics of your emergency department visit. If you don't have a primary care physician on staff, we will provide you with a referral. We always advise you to contact your personal physician following an emergency department visit to inform them of the circumstance of the visit and for follow-up with them and/or the need for any referrals to a consulting specialist. The emergency department will also refer you to a specialist when appropriate. This referral assures that you have the opportunity for followup care with a specialist. All of these measure are taken in an effort to provide you with optimal care, which includes your followup. Under all circumstances we always encourage you to contact your private physician who remains a resource for coordinating your care. When calling for followup care, please make the office aware that this follow-up is from your recent emergency room visit. If for any reason you are refused follow-up, please contact the [facility] emergency department at and asked to speak to the emergency department charge nurse. Home Over The counter medications for discomfort Benadryl Follow-up with your primary care provider if not improving by next week Return to the emergency department as directed and discussed - My Orders Last 24 Hours: My Active Orders 07/18/18 17:15 CULTURE STREP A CONFIRMATION [RM] Stat STREP SCRN A RAPID W CULT CONF [RM] Stat - Assessment/Plan Last 24 Hours: My Active Orders 07/18/18 17:15 CULTURE STREP A CONFIRMATION [RM] Stat STREP SCRN A RAPID W CULT CONF [RM] Stat
== END 2018-07-18 17:57 | disposition home or self-care (01) ==
LOC: MW.ED 17:07
DX: J06.9 Acute upper respiratory infection, unspecified (principal); F17.210 Nicotine dependence, cigarettes, uncomplicated; Z88.1 Allergy status to other antibiotic agents; Z88.5 Allergy status to narcotic agent
CPT/HCPCS: 87081; 87880-QW; 99283

== ENCOUNTER 2018-11-29 16:08 | Emergency (ER) | payer SELFPAY ==
[2018-11-29] MEDS ORDERED: Ondansetron 4 MG Tab.DIS PO ONE (16:19)
[2018-11-29] MEDS ORDERED: Ketorolac 60 MG/2 ML SDV IM ONE (16:19)
[2018-11-29] MEDS ORDERED: Cyclobenzaprine 10 MG Tab PO ONE (16:19)
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
[2018-11-29] MEDS ORDERED: Sodium Chloride 0.9% 1,000 ML IV ONE (17:29)
[2018-11-29] MEDS ORDERED: Iopamidol 755 MG/ML 200 ML Multipack Bottle IVPUSH STA (17:48)
[2018-11-29] MEDS ORDERED: Morphine 4 MG/ML Syringe IVPUSH ONE (17:49)
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
== END 2018-11-29 18:50 | disposition home or self-care (01) ==
LOC: MW.ED 16:08
DX: S09.8XXA Other specified injuries of head, initial encounter (principal); S16.1XXA Strain of muscle, fascia and tendon at neck level, initial encounter; Q18.0 Sinus, fistula and cyst of branchial cleft; Z88.0 Allergy status to penicillin; Z88.5 Allergy status to narcotic agent; V89.2XXA Person injured in unspecified motor-vehicle accident, traffic, initial encounter
CPT/HCPCS: 70450; 70491; 72125; 96361; 96372; 96374; 99284; A9270; J1885; J2270; J7040; Q9967; 99283

== ENCOUNTER 2019-01-16 09:49 | Emergency (ER) | payer MEDICAID ==
[2019-01-16] MEDS ORDERED: diphenhydrAMINE 50 MG Cap PO ONE (10:26)
--- NOTE | 2019-01-16 10:26 | EDM.PDOC ---
ED HPI GENERAL MEDICAL PROBLEM - General Chief Complaint: Skin Complaint Stated Complaint: RASH Time Seen by Provider: 01/16/19 10:35 Source of Information: Reports: Patient History Limitations: Reports: No Limitations - History of Present Illness INITIAL COMMENTS - FREE TEXT/NARRATIVE: HISTORY AND PHYSICAL: History of present illness: Patient is a 28-year-old female who presents to the ED today with concerns of a rash that developed on her neck following removal of adhesive tape from a recent surgery she had on her neck to remove the mass. Patient states that after removing the tape adhesive she started developing a rash underneath on her neck yesterday. She has not taken any medication for it and would desire some treatment in the ED. Patient states the rash is itchy and has only become painful after she has scratched it. Patient denies fever, chills, nausea, vomiting, diarrhea, difficulties breathing , shortness breath, diaphoresis, or all other GI, , cardiovascular, or respiratory concerns. Patient denies any health history. Review of systems: As per history of present illness and below otherwise all systems reviewed and negative. Past medical history: As per history of present illness and as reviewed below otherwise noncontributory. Surgical history: As per history of present illness and as reviewed below otherwise noncontributory. Social history: No reported history of drug or alcohol abuse. Family history: As per history of present illness and as reviewed below otherwise noncontributory. Physical exam: General: Patient sitting comfortably in no acute distress and nontoxic appearing HEENT: Atraumatic, normocephalic, pupils reactive, negative for conjunctival pallor or scleral icterus, mucous membranes moist, throat clear, neck supple, nontender, trachea midline. No meningeal signs. Lungs: Clear to auscultation, breath sounds equal bilaterally, chest nontender. Heart: S1S2, regular, negative for clicks, rubs, or overt murmur. Abdomen: Soft, nondistended, nontender. Negative for masses or hepatosplenomegaly. Negative for costovertebral tenderness. No rigidity, rebound , guarding. Pelvis: Stable nontender. Genitourinary: Deferred. Rectal: Deferred. Skin: There is a papular rash on the neck in a "necklace" fashion in the area of prior adhesive tape. No blisters, pustules, or sloughing of the skin noted. Extremities: Atraumatic, negative for cords or calf pain. Neurovascular unremarkable. Neuro: Awake, alert, oriented. Cranial nerves II through XII unremarkable. Cerebellum unremarkable. Motor and sensory unremarkable throughout. Exam nonfocal. Notes: On exam, she does have a rash that follows the adhesive tape that was prior to removed on the neck after her surgical procedure. Vitals today are reassuring. Will treat patient for contact dermatitis. Supportive care measures were reviewed and discussed and patient is agreeable to plan of care. She has no questions or concerns at this time. Therapeutics: Benadryl Prescriptions: None Impression: Contact dermatitis Plan: 1. You can use Benadryl or Zyrtec [id number] as needed for rash symptoms. You can also use [id number] hydrocortisone cream and apply this to the area of the rash. 2. Follow-up with your primary care provider as discussed. 3. You can use Tylenol and ibuprofen as needed for pain or discomfort. 4. Turn to the ED as needed and as discussed. Definitive disposition and diagnosis as appropriate pending reevaluation and review of above. - Related Data Allergies Allergy/AdvReac Type Severity Reaction Status Date / Time amoxicillin Allergy Rash Verified 01/16/19 10:06 codeine Allergy Rash Verified 01/16/19 10:06 Penicillins Allergy Rash Verified 01/16/19 10:06 Home Meds: Home Meds cephALEXin [Keflex] 500 mg PO BID 01/16/19 [History] oxyCODONE HCl/Acetaminophen [Oxycodone-Acetaminophen 5-325] 1 tab PO Q6H PRN 01/05 [History] Past Medical History - Past Health History Medical/Surgical History: Denies Medical/Surgical History HEENT History: Reports: None Cardiovascular History: Reports: None Respiratory History: Reports: None Gastrointestinal History: Reports: None Genitourinary History: Reports: None [employer] 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 Musculoskeletal History: Reports: None Neurological History: Reports: Other (See Below) Other Neuro History: post conscussion syndrome Psychiatric History: Reports: None Endocrine/Metabolic History: Reports: None Hematologic History: Reports: None Immunologic History: Reports: None Oncologic (Cancer) History: Reports: None Dermatologic History: Reports: None - Infectious Disease History Infectious Disease History: Reports: None - Past Surgical History Head Surgeries/Procedures: Reports: None HEENT Surgical History: Reports: None Cardiovascular Surgical History: Reports: None Respiratory Surgical History: Reports: None GI Surgical History: Reports: Cholecystectomy Female Surgical History: Reports: None Endocrine Surgical History: Reports: None Neurological Surgical History: Reports: None Musculoskeletal Surgical History: Reports: None Oncologic Surgical History: Reports: None Dermatological Surgical History: Reports: None Social & Family History - Family History Family Medical History: Noncontributory - Tobacco Use Smoking Status *Q: Never Smoker - Caffeine Use Caffeine Use: Reports: Coffee - Recreational Drug Use Recreational Drug Use: Yes Recreational Drug Type: Reports: Marijuana/Hashish Recreational Drug Use Frequency: Socially ED ROS GENERAL - Review of Systems Review Of Systems: ROS reveals no pertinent complaints other than HPI. ED EXAM, SKIN/RASH Exam: See Below (See dictation) Course - Vital Signs Last Recorded V/S: Last Vital Signs Temp 97.5 F 01/16/19 10:07 Pulse 75 01/16/19 10:44 Resp 18 01/16/19 10:44 BP 130/90 01/16/19 10:07 Pulse Ox 100 01/16/19 10:44 - Orders/Labs/Meds Meds: Medications Discontinued Medications Generic Name Dose Route Start Last Admin Trade Name Aldo PRN Reason Stop Dose Admin Diphenhydramine HCl 50 mg 01/16/19 10:26 01/16/19 10:31 Benadryl PO 01/16/19 10:27 50 mg ONETIME ONE Administration Departure - Departure Time of Disposition: 10:33 Disposition: Home, Self-Care 01 Clinical Impression: Contact dermatitis Qualifiers: Contact dermatitis type: unspecified Contact dermatitis trigger: unspecified trigger Qualified Code(s): L25.9 - Unspecified contact dermatitis, unspecified cause - Discharge Information Instructions: Contact Dermatitis, [id number]-Wozu Referrals: Ravi Price MD [Primary Care Provider] - Forms: ED Department Discharge Additional Instructions: The following information is given to patients seen in the emergency department who are being discharged to home. This information is to outline your options for follow-up care. We provide all patients seen in our emergency department with a follow-up referral. The need for follow-up, as well as the timing and circumstances, are variable depending upon the specifics of your emergency department visit. If you don't have a primary care physician on staff, we will provide you with a referral. We always advise you to contact your personal physician following an emergency department visit to inform them of the circumstance of the visit and for follow-up with them and/or the need for any referrals to a consulting specialist. The emergency department will also refer you to a specialist when appropriate. This referral assures that you have the opportunity for follow-up care with a specialist. All of these measure are taken in an effort to provide you with optimal care, which includes your follow-up. Under all circumstances we always encourage you to contact your private physician who remains a resource for coordinating your care. When calling for follow-up care, please make the office aware that this follow-up is from your recent emergency room visit. If for any reason you are refused follow-up, please contact the [facility] Emergency Department at and asked to speak to the emergency department charge nurse. [facility] [address] [place] [id number] [facility] [address] [place] [id number] 1. You can use Benadryl or Zyrtec [id number] as needed for rash symptoms. You can also use insy-vvm-zwrnwes hydrocortisone cream and apply this to the area of the rash. 2. Follow-up with your primary care provider as discussed. 3. You can use Tylenol and ibuprofen as needed for pain or discomfort. 4. Turn to the ED as needed and as discussed.
== END 2019-01-16 10:45 | disposition home or self-care (01) ==
LOC: MW.ED 09:49
DX: L25.9 Unspecified contact dermatitis, unspecified cause (principal); Z88.1 Allergy status to other antibiotic agents; Z88.5 Allergy status to narcotic agent; Z88.0 Allergy status to penicillin
CPT/HCPCS: 99282; A9270; 99283

== ENCOUNTER 2019-01-20 17:38 | Emergency (ER) | payer MEDICAID ==
--- NOTE | 2019-01-20 17:58 | EDM.PDOC ---
ED HPI GENERAL MEDICAL PROBLEM - General Chief Complaint: Skin Complaint Stated Complaint: PAIN IN NECK Time Seen by Provider: 01/20/19 17:57 Source of Information: Reports: Patient History Limitations: Reports: No Limitations - History of Present Illness INITIAL COMMENTS - FREE TEXT/NARRATIVE: HISTORY AND PHYSICAL: History of present illness: Patient is a 28-year-old female here with complaint of incision site pain and swelling. 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 Bernstein at [facility] in [place]. She states that recently she had been ill with vomiting and today started feeling pain at the incision site was swollen. She denies fevers or chills and denies drainage from the incision site. She denies shortness of breath or difficulty breathing. Review of systems: As per history of present illness and below otherwise all systems reviewed and negative. Past medical history: As per history of present illness and as reviewed below otherwise noncontributory. Surgical history: As per history of present illness and as reviewed below otherwise noncontributory. Social history: No reported history of drug or alcohol abuse. Family history: As per history of present illness and as reviewed below otherwise noncontributory. Physical exam: General: Patient sitting comfortably in no acute distress and nontoxic appearing HEENT: 4cm well healing incision to the right neck without any erythema or drainage. Mild swelling noted and tender to palpation with a firm 1cm nodular area felt at the end of the incision on the medial side. There is no fluctuance noted. Atraumatic, normocephalic, pupils reactive, negative for conjunctival pallor or scleral icterus, mucous membranes moist, throat clear, neck supple, nontender, trachea midline. No meningeal signs. Lungs: Clear to auscultation, breath sounds equal bilaterally, chest nontender. Heart: S1S2, regular, negative for clicks, rubs, or overt murmur. Abdomen: Soft, nondistended, nontender. Negative for masses or hepatosplenomegaly. Negative for costovertebral tenderness. No rigidity, rebound , guarding. Pelvis: Stable nontender. Genitourinary: Deferred. Rectal: Deferred. Extremities: Atraumatic, negative for cords or calf pain. Neurovascular unremarkable. Neuro: Awake, alert, oriented. Cranial nerves II through XII unremarkable. Cerebellum unremarkable. Motor and sensory unremarkable throughout. Exam nonfocal. Notes: CT shows a complex right cervical structure/collection in the region of the previously seen branchial cleft cyst, consistent with an abscess or an organizing hematoma, with an apparent sinus tract to the overlying right lower cervical skin. Correlate clinically. An enlarged left level 2 cervical lymph node. Paranasal sinus disease. CT findings were discussed with Dr. Bernstein, he recommends doxycycline and follow up in his clinic tomorrow or Friday. Diagnostics: CT soft tissue neck with contrast Therapeutics: None Prescriptions: Doxycycline Impression: Post operative hematoma vs abscess Plan: 1. Take antibiotic as instructed 2. Follow up with Dr. Bernstein tomorrow or Friday, please call [facility] to schedule this appointment 3. Return to ED as needed as discussed Definitive disposition and diagnosis as appropriate pending reevaluation and review of above. Right neck Pain Score (Numeric/FACES): 7 - Related Data Allergies Allergy/AdvReac Type Severity Reaction Status Date / Time amoxicillin Allergy Rash Verified 01/20/19 17:40 codeine Allergy Rash Verified 01/20/19 17:40 Penicillins Allergy Rash Verified 01/20/19 17:40 Home Meds: Home Meds cephALEXin [Keflex] 500 mg PO BID 01/16/19 [History] oxyCODONE HCl/Acetaminophen [Oxycodone-Acetaminophen 5-325] 1 tab PO Q6H PRN 01/05 [History] Doxycycline [Vibramycin] 100 mg PO BID 7 Days #14 cap 01/20/19 [Rx] Past Medical History - Past Health History Medical/Surgical History: Denies Medical/Surgical History HEENT History: Reports: None Cardiovascular History: Reports: None Respiratory History: Reports: None Gastrointestinal History: Reports: None Genitourinary History: Reports: None 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 Musculoskeletal History: Reports: None Neurological History: Reports: Other (See Below) Other Neuro History: post conscussion syndrome Psychiatric History: Reports: None Endocrine/Metabolic History: Reports: None Hematologic History: Reports: None Immunologic History: Reports: None Oncologic (Cancer) History: Reports: None Dermatologic History: Reports: None - Infectious Disease History Infectious Disease History: Reports: None - Past Surgical History Head Surgeries/Procedures: Reports: None HEENT Surgical History: Reports: Other (See Below) Other HEENT Surgeries/Procedures: Brachial cleft cysts removal Cardiovascular Surgical History: Reports: None Respiratory Surgical History: Reports: None GI Surgical History: Reports: Cholecystectomy Female Surgical History: Reports: None Endocrine Surgical History: Reports: None Neurological Surgical History: Reports: None Musculoskeletal Surgical History: Reports: None Oncologic Surgical History: Reports: None Dermatological Surgical History: Reports: None Social & Family History - Family History Family Medical History: Noncontributory - Tobacco Use Smoking Status *Q: Former Smoker Used Tobacco, but Quit: Yes Month/Year Tobacco Last Used: 2016 - Caffeine Use Caffeine Use: Reports: Coffee, Soda, Tea - Recreational Drug Use Recreational Drug Use: No ED ROS GENERAL - Review of Systems Review Of Systems: ROS reveals no pertinent complaints other than HPI. ED EXAM, SKIN/RASH Exam: See Below (see dictation) Course - Vital Signs Last Recorded V/S: Last Vital Signs Temp 97.8 F 01/20/19 17:41 Pulse 89 01/20/19 17:41 Resp 18 01/20/19 17:41 BP 161/91 H 01/20/19 17:41 Pulse Ox 98 01/20/19 17:41 - Orders/Labs/Meds Labs: Laboratory Tests 01/20/19 01/20/19 01/20/19 Range/Units 18:53 18:53 18:53 WBC 11.63 H (4.0-11.0) K/uL RBC 4.30 (4.30-5.90) M/uL Hgb 12.1 (12.0-16.0) g/dL Hct 36.1 (36.0-46.0) % MCV 84.0 (80.0-98.0) fL MCH 28.1 (27.0-32.0) pg MCHC 33.5 (31.0-37.0) g/dL RDW Std Deviation 39.3 (28.0-62.0) fl RDW Coeff of Arlene 13 (11.0-15.0) % Plt Count 334 (150-400) K/uL MPV 9.60 (7.40-12.00) fL Neut % (Auto) 73.5 (48.0-80.0) % Lymph % (Auto) 18.1 (16.0-40.0) % Mcclain % (Auto) 6.6 (0.0-15.0) % Eos % (Auto) 1.2 (0.0-7.0) % Baso % (Auto) 0.6 (0.0-1.5) % Neut # (Auto) 8.5 H (1.4-5.7) K/uL Lymph # (Auto) 2.1 (0.6-2.4) K/uL Mcclain # (Auto) 0.8 (0.0-0.8) K/uL Eos # (Auto) 0.1 (0.0-0.7) K/uL Baso # (Auto) 0.1 (0.0-0.1) K/uL Nucleated RBC % 0.0 /100WBC Nucleated RBCs # 0 K/uL Sodium 141 (136-145) mmol/L Potassium 3.4 L (3.5-5.1) mmol/L Chloride 106 (98-107) mmol/L Carbon Dioxide 27.4 (21.0-32.0) mmol/L BUN 8 (7.0-18.0) mg/dL Creatinine 0.6 0.6 (0.6-1.0) mg/dL Est Cr Clr Drug Dosing 118.39 118.39 mL/min Estimated GFR (MDRD) > 60.0 > 60.0 ml/min Glucose 97 (74-106) mg/dL Calcium 8.5 (8.5-10.1) mg/dL Total Bilirubin 0.2 (0.2-1.0) mg/dL AST 15 (15-37) IU/L ALT 28 (14-63) IU/L Alkaline Phosphatase 86 (46-116) U/L Total Protein 6.9 (6.4-8.2) g/dL Albumin 2.9 L (3.4-5.0) g/dL Globulin 4.0 (2.6-4.0) g/dL Albumin/Globulin Ratio 0.7 L (0.9-1.6) Meds: Medications Discontinued Medications Generic Name Dose Route Start Last Admin Trade Name Freq PRN Reason Stop Dose Admin Iopamidol 80 ml 01/20/19 20:18 01/20/19 20:18 Isovue Multipack-370 (76%) IVPUSH 01/20/19 20:19 80 ml ONETIME STA Administration Departure - Departure Time of Disposition: 20:43 Disposition: Home, Self-Care 01 Condition: Good Clinical Impression: Postoperative abscess - Discharge Information Prescriptions: Doxycycline [Vibramycin] 100 mg PO BID 7 Days #14 cap Instructions: Incision Care, Adult, [id number] Referrals: PCP,Unknown [Primary Care Provider] - Forms: ED Department Discharge Additional Instructions: The following information is given to patients seen in the emergency department who are being discharged to home. This information is to outline your options for follow-up care. We provide all patients seen in our emergency department with a follow-up referral. The need for follow-up, as well as the timing and circumstances, are variable depending upon the specifics of your emergency department visit. If you don't have a primary care physician on staff, we will provide you with a referral. We always advise you to contact your personal physician following an emergency department visit to inform them of the circumstance of the visit and for follow-up with them and/or the need for any referrals to a consulting specialist. The emergency department will also refer you to a specialist when appropriate. This referral assures that you have the opportunity for follow-up care with a specialist. All of these measure are taken in an effort to provide you with optimal care, which includes your follow-up. Under all circumstances we always encourage you to contact your private physician who remains a resource for coordinating your care. When calling for follow-up care, please make the office aware that this follow-up is from your recent emergency room visit. If for any reason you are refused follow-up, please contact the [facility] Emergency Department at and asked to speak to the emergency department charge nurse. 1. Take antibiotic as instructed 2. Follow up with Dr. Bernstein tomorrow or Friday, please call [facility] in [place] to schedule this appointment 3. Return to ED as needed as discussed
--- NOTE | 2019-01-20 18:28 | CR ---
Indication: Mass removed from neck on December. Increasing pain at the incision site. Technique: Two views of the soft tissue neck were obtained. Comparison: None Findings: The alignment of the cervical spine is within normal limits. The vertebral body heights are well maintained. The prevertebral soft tissues are normal. The airway is widely patent. Impression: Patent airway Dictated by Anali White MD @ Jan 20 2019 6:25PM Signed by Dr. Anali White @ Jan 20 2019 6:26PM
[2019-01-20] MEDS: Iopamidol 755 MG/ML 500 ML Multipack Bottle IVPUSH STA (20:18)
--- NOTE | 2019-01-20 20:21 | CT ---
INDICATION: Status post branchial cleft cyst removal. Pain and swelling TECHNIQUE: CT soft tissue of the neck was acquired with IV contrast. 80 mL of Isovue 370 administered. COMPARISON: 11/29/2018 FINDINGS: There is a 2.0 x 2.4 x 3.7 cm ovoid structure in the right neck, in the region of the previously seen branchial cleft cyst, demonstrating soft tissue periphery and an irregular 1.6 x 1.5 x 3.0 cm internal low-attenuation area containing ill-defined foci of increased density. There is tubular extension of the inferior aspect of this structure to the right lower neck subcutaneous fat with focal soft tissue thickening in the overlying skin. Mild adjacent soft tissue edema is noted. The adenoids are prominent. The nasopharynx, oropharynx, hypopharynx and larynx are patent. The parotid, submandibular and sublingual glands are within normal limits. The thyroid is unremarkable. There is a mildly enlarged left level 2 lymph node measuring 1.5 x 1.2 cm. There is mild to moderate pansinus mucosal thickening. No suspicious or acute osseous abnormalities are seen. IMPRESSION: A complex right cervical structure/collection in the region of the previously seen branchial cleft cyst, consistent with an abscess or an organizing hematoma, with an apparent sinus tract to the overlying right lower cervical skin. Correlate clinically. An enlarged left level 2 cervical lymph node. Paranasal sinus disease. Dictated by Dajuan Alejandro MD @ 01/20/2019 8:19:45 PM Please note that all CT scans at this facility use dose modulation, iterative reconstruction, and/or weight-based dosing when appropriate to reduce radiation dose to as low as reasonably achievable. Dictated by: Dajuan Alejandro MD @ 01/20/2019 20:19:51 (Electronically Signed)
[2019-01-20 21:14] LABS: CHLORIDE,CL 106 mmol/L (98-107); SODIUM,NA 141 mmol/L (136-145)
== END 2019-01-20 21:41 | disposition home or self-care (01) ==
LOC: MW.ED 17:38
DX: T81.41XA Infection following a procedure, superficial incisional surgical site, initial encounter (principal); Z88.1 Allergy status to other antibiotic agents; Z88.5 Allergy status to narcotic agent; Z88.0 Allergy status to penicillin
CPT/HCPCS: 36415; 70360; 70491; 80053; 82565; 85025; 99284; Q9967

== ENCOUNTER 2019-04-30 19:02 | Emergency (ER) | payer MEDICAID ==
--- NOTE | 2019-04-30 19:11 | EDM.PDOC ---
ED HPI GENERAL MEDICAL PROBLEM - General Chief Complaint: Skin Complaint Stated Complaint: RASH Time Seen by Provider: 04/30/19 19:03 Source of Information: Reports: Patient History Limitations: Reports: No Limitations - History of Present Illness INITIAL COMMENTS - FREE TEXT/NARRATIVE: HISTORY AND PHYSICAL: History of present illness: Patient is a 28-year-old female who presents to the emergency room with complaints of rash and itching to her chest and bilateral forearms. She states she was seen in the residency clinic earlier this month for this complaint and was placed on doxycycline. She states she took approximately 10 days worth of the antibiotic per her symptoms have not resolved. She states that the rash is more itchy but does not appear to have spread nor is worse in appearance. She has been taking Claritin [id number] to help alleviate some of her symptoms. She denies any centralized bite or rash when the symptoms first started. No new exposures or contacts. Patient denies any fever, chills, headache, change in vision, syncope or near syncope. Denies any chest pain, back pain, shortness of breath or cough. Denies any GI or symptoms. Patient has been eating and drinking appropriately. Review of systems: As per history of present illness and below otherwise all systems reviewed and negative. Past medical history: As per history of present illness and as reviewed below otherwise noncontributory. Surgical history: As per history of present illness and as reviewed below otherwise noncontributory. Social history: See social history for further information Family history: As per history of present illness and as reviewed below otherwise noncontributory. Physical exam: General: Well-developed and well-nourished 28-year-old female. Alert and oriented. Nontoxic appearing and in no acute distress. HEENT: Atraumatic, normocephalic, pupils equal and reactive bilaterally, negative for conjunctival pallor or scleral icterus, mucous membranes moist, TMs normal bilaterally, throat clear, neck supple, nontender, trachea midline. No drooling or trismus noted. No meningeal signs. No hot potato voice noted. Lungs: Clear to auscultation, breath sounds equal bilaterally, chest nontender. Heart: S1S2, regular rate and rhythm without overt murmur Abdomen: Soft, nondistended, nontender. Skin: Faint pinpoint scattered rash to chest and bilateral anterior distal forearm. Otherwise skin is intact, warm, dry. No lesions noted. Extremities: Atraumatic, moves all extremities per self without difficulty or deficits, negative for cords or calf pain. Neurovascular unremarkable. Neuro: Awake, alert, oriented. Cranial nerves II through XII unremarkable. Cerebellum unremarkable. Motor and sensory unremarkable throughout. Exam nonfocal. Notes: Does not appear to need repeat antibiotics. There is no centralized or bull's- eye area related to this rash. Does not appear to be cellulitic or bedbugs. We' ll place her on Medrol Dosepak and give Atarax for the itching. Supportive care measures were reviewed and discussed. Voices understanding and is agreeable to plan of care. Denies any further questions or concerns at this time. Diagnostics: None Therapeutics: Solu-Medrol IM Prescription: Atarax (#15) Medrol Dosepak Impression: Atopic Dermatitis Plan: 1. Avoid triggers. Continue to monitor for possible exposures/triggers. 2. While symptomatic continue to routinely take Benadryl 50mg every 4-6 hours or the Atarax (prescribed) every 6 hours as needed. Do not take these medications together. Instead of the Claritin, use Zantac 150mg twice daily over the next week. Take the Medrol dose pack as prescribed. 3. You may use topical calamine lotion, cool tempid oatmeal baths, Aveeno bath/ lotions. 4. Please follow up with your Primary care doctor as discussed. Return to the ED as needed and as discussed. Definitive disposition and diagnosis as appropriate pending reevaluation and review of above. - Related Data Allergies Allergy/AdvReac Type Severity Reaction Status Date / Time amoxicillin Allergy Rash Verified 04/30/19 19:15 codeine Allergy Rash Verified 04/30/19 19:15 Penicillins Allergy Rash Verified 04/30/19 19:15 Home Meds: Home Meds oxyCODONE HCl/Acetaminophen [Oxycodone-Acetaminophen 5-325] 1 tab PO Q6H PRN 01/05 [History] Past Medical History - Past Health History Medical/Surgical History: Denies Medical/Surgical History HEENT History: Reports: None Cardiovascular History: Reports: None Respiratory History: Reports: None Gastrointestinal History: Reports: None Genitourinary History: Reports: None 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 Musculoskeletal History: Reports: None Neurological History: Reports: Other (See Below) Other Neuro History: post conscussion syndrome Psychiatric History: Reports: None Endocrine/Metabolic History: Reports: None Hematologic History: Reports: None Immunologic History: Reports: None Oncologic (Cancer) History: Reports: None Dermatologic History: Reports: None - Infectious Disease History Infectious Disease History: Reports: None - Past Surgical History Head Surgeries/Procedures: Reports: None HEENT Surgical History: Reports: Other (See Below) Other HEENT Surgeries/Procedures: Brachial cleft cysts removal Cardiovascular Surgical History: Reports: None Respiratory Surgical History: Reports: None GI Surgical History: Reports: Cholecystectomy Female Surgical History: Reports: None Endocrine Surgical History: Reports: None Neurological Surgical History: Reports: None Musculoskeletal Surgical History: Reports: None Oncologic Surgical History: Reports: None Dermatological Surgical History: Reports: None Social & Family History - Family History Family Medical History: Noncontributory - Caffeine Use Caffeine Use: Reports: Coffee, Soda, Tea ED ROS GENERAL - Review of Systems Review Of Systems: ROS reveals no pertinent complaints other than HPI. ED EXAM, SKIN/RASH Exam: See Below (See dictation) Course - Orders/Labs/Meds Orders: Active Orders 24 hr Category Date Time Status methylPREDNISolone Sod Succ [Solu-MEDROL] Med 04/30/19 19:19 Once 125 mg IM ONETIME ONE Medication Orders Methylprednisolone Sodium Succinate (Solu-Medrol) 125 mg IM ONETIME ONE Stop: 04/30/19 19:20 Meds: Medications Generic Name Dose Route Start Last Admin Trade Name Freq PRN Reason Stop Dose Admin Methylprednisolone Sodium Succinate 125 mg 04/30/19 19:19 Solu-Medrol IM 04/30/19 19:20 ONETIME ONE Departure - Departure Time of Disposition: 19:29 Disposition: Home, Self-Care 01 Clinical Impression: Atopic dermatitis Qualifiers: Atopic dermatitis type: unspecified Qualified Code(s): L20.9 - Atopic dermatitis, unspecified - Discharge Information Instructions: Atopic Dermatitis Referrals: PCP,None [Primary Care Provider] - Forms: ED Department Discharge Additional Instructions: The following information is given to patients seen in the emergency department who are being discharged to home. This information is to outline your options for follow-up care. We provide all patients seen in our emergency department with a follow-up referral. The need for follow-up, as well as the timing and circumstances, are variable depending upon the specifics of your emergency department visit. If you don't have a primary care physician on staff, we will provide you with a referral. We always advise you to contact your personal physician following an emergency department visit to inform them of the circumstance of the visit and for follow-up with them and/or the need for any referrals to a consulting specialist. The emergency department will also refer you to a specialist when appropriate. This referral assures that you have the opportunity for follow-up care with a specialist. All of these measure are taken in an effort to provide you with optimal care, which includes your follow-up. Under all circumstances we always encourage you to contact your private physician who remains a resource for coordinating your care. When calling for follow-up care, please make the office aware that this follow-up is from your recent emergency room visit. If for any reason you are refused follow-up, please contact the [facility] Emergency Department at and asked to speak to the emergency department charge nurse. [facility] [address] [place] [id number] [place] [address] 1. Avoid triggers. Continue to monitor for possible exposures/triggers. 2. While symptomatic continue to routinely take Benadryl 50mg every 4-6 hours or the Atarax (prescribed) every 6 hours as needed. Do not take these medications together. Instead of the Claritin, use Zantac 150mg twice daily over the next week. Take the Medrol dose pack as prescribed. 3. You may use topical calamine lotion, cool tempid oatmeal baths, Aveeno bath/ lotions. 4. Please follow up with your Primary care doctor as discussed. Return to the ED as needed and as discussed. - My Orders Last 24 Hours: My Active Orders 04/30/19 19:19 methylPREDNISolone Sod Succ [Solu-MEDROL] 125 mg IM ONETIME ONE - Assessment/Plan Last 24 Hours: My Active Orders 06/14/19 19:19 methylPREDNISolone Sod Succ [Solu-MEDROL] 125 mg IM ONETIME ONE
[2019-04-30] MEDS ORDERED: methylPREDNISolone Sodium Succinate 125 MG/2 ML SDV IM ONE (19:19)
== END 2019-04-30 19:40 | disposition home or self-care (01) ==
LOC: MW.ED 19:02
DX: L20.9 Atopic dermatitis, unspecified (principal); Z88.1 Allergy status to other antibiotic agents; Z88.5 Allergy status to narcotic agent; Z88.0 Allergy status to penicillin
CPT/HCPCS: 96372; 99282; J2930

== ENCOUNTER 2019-09-04 04:06 | Emergency (ER) | payer SELFPAY ==
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
== END 2019-09-04 07:14 | disposition home or self-care (01) ==
LOC: MW.ED 04:06
DX: O9A.219 Injury, poisoning and certain other consequences of external causes complicating pregnancy, unspecified trimester (principal); S09.90XA Unspecified injury of head, initial encounter; S16.1XXA Strain of muscle, fascia and tendon at neck level, initial encounter; S00.12XA Contusion of left eyelid and periocular area, initial encounter; O99.340 Other mental disorders complicating pregnancy, unspecified trimester; F41.9 Anxiety disorder, unspecified; F32.9 Major depressive disorder, single episode, unspecified; Z79.899 Other long term (current) drug therapy; Z88.5 Allergy status to narcotic agent; Z88.0 Allergy status to penicillin; Z91.040 Latex allergy status; Y04.2XXA Assault by strike against or bumped into by another person, initial encounter; Z3A.00 Weeks of gestation of pregnancy not specified
CPT/HCPCS: 36415; 70450; 70450-26; 70486; 70486-26; 72125; 72125-26; 81025; 84702; 99284-25

== ENCOUNTER 2019-09-28 13:38 | Emergency (ER) | payer OTHER ==
--- NOTE | 2019-09-28 13:58 | EDM.PDOC ---
ED HPI GENERAL MEDICAL PROBLEM - General Chief Complaint: AIDS NURSE Problem Stated Complaint: ABD PAIN,CHEST DISCOMFORT Time Seen by Provider: 09/28/19 13:39 Source of Information: Reports: Patient History Limitations: Reports: No Limitations - History of Present Illness INITIAL COMMENTS - FREE TEXT/NARRATIVE: HISTORY AND PHYSICAL: History of present illness: Patient is a 29-year-old female presents to the ED today with concern of cramping and bleeding and . Patient states she is approximately 13 weeks in gestation and follows along with Dr. Chaparro. 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 Patient states yesterday she had bleeding which she states was similar to a regular menstrual cycle. Patient states the bleeding has slowed down and is only a little bit of pink today when she wipes. Patient states starting today, however, she started getting lower abdominal cramping that feels like a menstrual cycle. Patient states she took Tylenol at 8 this morning. Patient denies any other symptoms or concerns. Patient states she has had an ultrasound confirming intrauterine according to patient. Patient denies fever, chills, chest pain, shortness of breath, or cough. Denies headache, neck stiff ness, change in vision, syncope, or near syncope. Denies nausea, vomiting, diarrhea, constipation, or dysuria. Has not noted any blood in urine or stool. Patient has been eating and drinking appropriately. Review of systems: As per history of present illness and below otherwise all systems reviewed and negative. Past medical history: As per history of present illness and as reviewed below otherwise noncontributory. Surgical history: As per history of present illness and as reviewed below otherwise noncontributory. Social history: See social history for further information Family history: As per history of present illness and as reviewed below otherwise noncontributory. Physical exam: General: Patient is alert, oriented, and in no acute distress. Patient laying comfortably on exam table. HEENT: Atraumatic, normocephalic, pupils equal and reactive bilaterally, negative for conjunctival pallor or scleral icterus, mucous membranes moist, TMs normal bilaterally, throat clear, neck supple, nontender, trachea midline. No drooling or trismus noted. No meningeal signs. No hot potato voice noted. Lungs: Clear to auscultation, breath sounds equal bilaterally, chest nontender. Heart: S1S2, regular rate and rhythm without overt murmur Abdomen: Obese, soft, nondistended, mild-moderate tenderness to palpation of the suprapubic area. Negative for masses or hepatosplenomegaly. Negative for costovertebral tenderness. Pelvis: Stable nontender. Genitourinary: Deferred. Rectal: Deferred. Skin: Intact, warm, dry. No lesions or rashes noted. Extremities: Atraumatic, negative for cords or calf pain. Neurovascular unremarkable. Neuro: Awake, alert, oriented. Cranial nerves II through XII unremarkable. Cerebellum unremarkable. Motor and sensory unremarkable throughout. Exam nonfocal. Notes: Elvira Chopra, necktie stitcher promotions representative for the OBGYN clinic and discussed patients physical exam and evaluation. Elvira has scheduled an appointment on October 05 at 9:30am for follow up and does not see a need for repeat hcg quant at this time. Voices understanding and is agreeable to plan of care. Denies any further questions or concerns at this time. Diagnostics: CBC, CMP, UA, blood type, transvaginal ultrasound, blood hCG quant Therapeutics: None Prescription: None Impression: H/O vaginal bleeding in Lower abdominal cramping in Plan: 1. Follow up with Dr. Chaparro on October 05 at 9:30am in his clinic. 2. You can use Tylenol as directed for pain and discomfort. This is safe to use in . 3. Please start and/or continue to take your vitamin with folic acid once daily. 4. Pelvic rest until cleared by your OBGYN (no tampons, sex, etc...) 5. Return to the ED as needed and as discussed. Definitive disposition and diagnosis as appropriate pending reevaluation and review of above. Lower Abdominal Pain Score (Numeric/FACES): 10 Chest Pain Score (Numeric/FACES): 6 - Related Data Allergies Allergy/AdvReac Type Severity Reaction Status Date / Time codeine Allergy Rash Verified 09/28/19 13:49 latex Allergy Hives Verified 09/28/19 13:49 Penicillins Allergy Rash Verified 09/28/19 13:49 Home Meds: Home Meds Acetaminophen [Tylenol] 650 mg PO ASDIRECTED PRN 09/28/19 [History] #103/Iron Fumarate/Fa [ ] 1 tab PO DAILY 09/28/19 [ History] Past Medical History - Past Health History Medical/Surgical History: Denies Medical/Surgical History HEENT History: Reports: None Cardiovascular History: Reports: None Respiratory History: Reports: None Gastrointestinal History: Reports: None Genitourinary History: Reports: None AIDS NURSE History: Reports: Spontaneous , Other (See Below) Other AIDS NURSE History: still Musculoskeletal History: Reports: None Neurological History: Reports: Other (See Below) Other Neuro History: post conscussion syndrome Psychiatric History: Reports: Anxiety, Depression, PTSD Endocrine/Metabolic History: Reports: None Hematologic History: Reports: None Immunologic History: Reports: None Oncologic (Cancer) History: Reports: None Dermatologic History: Reports: None - Infectious Disease History Infectious Disease History: Reports: None - Past Surgical History Head Surgeries/Procedures: Reports: None HEENT Surgical History: Reports: Other (See Below) Other HEENT Surgeries/Procedures: Brachial cleft cysts removal Cardiovascular Surgical History: Reports: None Respiratory Surgical History: Reports: None GI Surgical History: Reports: Cholecystectomy Female Surgical History: Reports: None Endocrine Surgical History: Reports: None Neurological Surgical History: Reports: None Musculoskeletal Surgical History: Reports: None Oncologic Surgical History: Reports: None Dermatological Surgical History: Reports: None Social & Family History - Family History Family Medical History: Noncontributory - Tobacco Use Smoking Status *Q: Never Smoker - Caffeine Use Caffeine Use: Reports: Coffee - Recreational Drug Use Recreational Drug Use: No ED ROS GENERAL - Review of Systems Review Of Systems: Comprehensive ROS is negative, except as noted in HPI. ED EXAM, GENERAL - Physical Exam Exam: See Below (see dictation) Course - Vital Signs Last Recorded V/S: Last Vital Signs Temp 97.5 F 09/28/19 15:03 Pulse 82 09/28/19 13:45 Resp 18 09/28/19 13:45 BP 131/71 09/28/19 13:45 Pulse Ox 99 09/28/19 13:45 - Orders/Labs/Meds Orders: Active Orders 24 hr Category Date Time Status EKG 12 Lead [EKG Documentation Completion] [RC] STAT Care 09/28/19 14:03 Active CULTURE URINE [RM] Stat Lab 09/28/19 14:06 Received Labs: Laboratory Tests 09/28/19 09/28/19 09/28/19 Range/Units 13:59 13:59 13:59 WBC 7.47 (4.0-11.0) K/uL RBC 4.03 L (4.30-5.90) M/uL Hgb 11.5 L (12.0-16.0) g/dL Hct 33.6 L (36.0-46.0) % MCV 83.4 (80.0-98.0) fL MCH 28.5 (27.0-32.0) pg MCHC 34.2 (31.0-37.0) g/dL RDW Std Deviation 40.7 (28.0-62.0) fl RDW Coeff of Arlene 13 (11.0-15.0) % Plt Count 235 (150-400) K/uL MPV 9.20 (7.40-12.00) fL Neut % (Auto) 65.4 (48.0-80.0) % Lymph % (Auto) 22.5 (16.0-40.0) % [place] % (Auto) 8.8 (0.0-15.0) % Eos % (Auto) 2.9 (0.0-7.0) % Baso % (Auto) 0.4 (0.0-1.5) % Neut # (Auto) 4.9 (1.4-5.7) K/uL Lymph # (Auto) 1.7 (0.6-2.4) K/uL [place] # (Auto) 0.7 (0.0-0.8) K/uL Eos # (Auto) 0.2 (0.0-0.7) K/uL Baso # (Auto) 0.0 (0.0-0.1) K/uL Nucleated RBC % 0.0 /100WBC Nucleated RBCs # 0 K/uL Sodium 137 (136-145) mmol/L Potassium 3.4 L (3.5-5.1) mmol/L Chloride 107 (98-107) mmol/L Carbon Dioxide 20.3 L (21.0-32.0) mmol/L BUN 7 (7.0-18.0) mg/dL Creatinine 0.6 (0.6-1.0) mg/dL Est Cr Clr Drug Dosing 122.25 mL/min Estimated GFR (MDRD) > 60.0 ml/min Glucose 75 (74-106) mg/dL Calcium 8.0 L (8.5-10.1) mg/dL Total Bilirubin 0.3 (0.2-1.0) mg/dL AST 15 (15-37) IU/L ALT 27 (14-63) IU/L Alkaline Phosphatase 50 (46-116) U/L Total Protein 6.5 (6.4-8.2) g/dL Albumin 2.7 L (3.4-5.0) g/dL Globulin 3.8 (2.6-4.0) g/dL Albumin/Globulin Ratio 0.7 L (0.9-1.6) HCG, Quant 11298.0 mIU/mL Urine Color Urine Appearance Urine pH (5.0-8.0) Ur Specific [place] (1.001-1.035) Urine Protein (NEGATIVE) mg/dL Urine Glucose (UA) (NEGATIVE) mg/dL Urine Ketones (NEGATIVE) mg/dL Urine Occult Blood (NEGATIVE) Urine Nitrite (NEGATIVE) Urine Bilirubin (NEGATIVE) Urine Urobilinogen (<2.0) EU/dL Ur Leukocyte Esterase (NEGATIVE) Urine RBC (0-2/HPF) Urine WBC (0-5/HPF) Ur Epithelial Cells (NONE-FEW) Urine Bacteria (NEGATIVE) Blood Type A POSITIVE 09/28/19 Range/Units 14:06 WBC (4.0-11.0) K/uL RBC (4.30-5.90) M/uL Hgb (12.0-16.0) g/dL Hct (36.0-46.0) % MCV (80.0-98.0) fL MCH (27.0-32.0) pg MCHC (31.0-37.0) g/dL RDW Std Deviation (28.0-62.0) fl RDW Coeff of Arlene (11.0-15.0) % Plt Count (150-400) K/uL MPV (7.40-12.00) fL Neut % (Auto) (48.0-80.0) % Lymph % (Auto) (16.0-40.0) % [place] % (Auto) (0.0-15.0) % Eos % (Auto) (0.0-7.0) % Baso % (Auto) (0.0-1.5) % Neut # (Auto) (1.4-5.7) K/uL Lymph # (Auto) (0.6-2.4) K/uL [place] # (Auto) (0.0-0.8) K/uL Eos # (Auto) (0.0-0.7) K/uL Baso # (Auto) (0.0-0.1) K/uL Nucleated RBC % /100WBC Nucleated RBCs # K/uL Sodium (136-145) mmol/L Potassium (3.5-5.1) mmol/L Chloride (98-107) mmol/L Carbon Dioxide (21.0-32.0) mmol/L BUN (7.0-18.0) mg/dL Creatinine (0.6-1.0) mg/dL Est Cr Clr Drug Dosing mL/min Estimated GFR (MDRD) ml/min Glucose (74-106) mg/dL Calcium (8.5-10.1) mg/dL Total Bilirubin (0.2-1.0) mg/dL AST (15-37) IU/L ALT (14-63) IU/L Alkaline Phosphatase (46-116) U/L Total Protein (6.4-8.2) g/dL Albumin (3.4-5.0) g/dL Globulin (2.6-4.0) g/dL Albumin/Globulin Ratio (0.9-1.6) HCG, Quant mIU/mL Urine Color YELLOW Urine Appearance CLEAR Urine pH 5.5 (5.0-8.0) Ur Specific [place] 1.010 (1.001-1.035) Urine Protein NEGATIVE (NEGATIVE) mg/dL Urine Glucose (UA) NEGATIVE (NEGATIVE) mg/dL Urine Ketones NEGATIVE (NEGATIVE) mg/dL Urine Occult Blood NEGATIVE (NEGATIVE) Urine Nitrite NEGATIVE (NEGATIVE) Urine Bilirubin NEGATIVE (NEGATIVE) Urine Urobilinogen 0.2 (<2.0) EU/dL Ur Leukocyte Esterase TRACE H (NEGATIVE) Urine RBC 0-2 (0-2/HPF) Urine WBC 0-3 (0-5/HPF) Ur Epithelial Cells FEW (NONE-FEW) Urine Bacteria FEW (NEGATIVE) Blood Type Meds: Medications Discontinued Medications Generic Name Dose Route Start Last Admin Trade Name Freq PRN Reason Stop Dose Admin Acetaminophen 1,000 mg 09/28/19 14:58 11/12/19 15:03 Tylenol Extra Strength PO 09/28/19 14:59 1,000 mg ONETIME ONE Administration Departure - Departure Time of Disposition: 16:23 Disposition: Home, Self-Care 01 Clinical Impression: Bleeding in early , Abdominal cramping affecting - Discharge Information Forms: ED Department Discharge Additional Instructions: The following information is given to patients seen in the emergency department who are being discharged to home. This information is to outline your options for follow-up care. We provide all patients seen in our emergency department with a follow-up referral. The need for follow-up, as well as the timing and circumstances, are variable depending upon the specifics of your emergency department visit. If you don't have a primary care physician on staff, we will provide you with a referral. We always advise you to contact your personal physician following an emergency department visit to inform them of the circumstance of the visit and for follow-up with them and/or the need for any referrals to a consulting specialist. The emergency department will also refer you to a specialist when appropriate. This referral assures that you have the opportunity for follow-up care with a specialist. All of these measure are taken in an effort to provide you with optimal care, which includes your follow-up. Under all circumstances we always encourage you to contact your private physician who remains a resource for coordinating your care. When calling for follow-up care, please make the office aware that this follow-up is from your recent emergency room visit. If for any reason you are refused follow-up, please contact the [facility] Emergency Department at and asked to speak to the emergency department charge nurse. [facility] [address] [place] [id number] [address] [address] 1. Follow up with Dr. Chaparro on October 05 at 9:30am in his clinic. 2. You can use Tylenol as directed for pain and discomfort. This is safe to use in . 3. Please start and/or continue to take your vitamin with folic acid once daily. 4. Pelvic rest until cleared by your OBGYN (no tampons, sex, etc...) 5. Return to the ED as needed and as discussed. - My Orders Last 24 Hours: My Active Orders 09/28/19 14:03 EKG 12 Lead [EKG Documentation Completion] [RC] STAT 09/28/19 14:06 CULTURE URINE [RM] Stat - Assessment/Plan Last 24 Hours: My Active Orders 09/28/19 14:03 EKG 12 Lead [EKG Documentation Completion] [RC] STAT 09/28/19 14:06 CULTURE URINE [RM] Stat
[2019-09-28 14:54] LABS: BLOOD UREA NITROGEN,BUN 7 mg/dL (7.0-18.0); CARBON DIOXIDE,CO2 20.3 mmol/L (21.0-32.0); CHLORIDE,CL 107 mmol/L (98-107); GLUCOSE RANDOM 75 mg/dL (74-106); POTASSIUM,K 3.4 mmol/L (3.5-5.1); SODIUM,NA 137 mmol/L (136-145)
[2019-09-28] MEDS ORDERED: Acetaminophen 500 MG Tab PO ONE (14:58)
--- NOTE | 2019-09-28 15:44 | US ---
EXAM DATE: 09/28/19 PATIENT'S AGE: 29 1st trimester obstetrical ultrasound: Multiple real-time images were obtained transabdominally. Comparison: Previous obstetrical ultrasound of 09/06/19. Dates: Current ultrasound: MARLEEN 04/09/20, gestational age 12 weeks 2 days Earliest ultrasound (09/06/19): MARLEEN 04/12/20, gestational age 11 weeks 6 days Single intrauterine gestation is seen. Embryo is seen. Amniotic fluid volume is normal. No subchorionic hemorrhage is seen. Measurements: [place]-rump length: 55.83 mm - 12 weeks 2 days Heart rate: 164 BPM Impression: 1. Single intrauterine gestation. Dates as noted above. 2. No etiology is identified for the patient's bleeding. Diagnostic code #1 Report Signed by Proxy. MANSI
== END 2019-09-28 16:34 | disposition home or self-care (01) ==
LOC: MW.ED 13:38
DX: O20.9 Hemorrhage in early pregnancy, unspecified (principal); O26.891 Other specified pregnancy related conditions, first trimester; R10.30 Lower abdominal pain, unspecified; Z88.5 Allergy status to narcotic agent; Z88.0 Allergy status to penicillin; Z91.040 Latex allergy status; Z3A.12 12 weeks gestation of pregnancy
CPT/HCPCS: 36415; 76801; 80053; 81001; 84702; 85025; 86900; 86901; 87086; 93005; 99284; A9270

== ENCOUNTER 2020-01-10 10:54 | Emergency (ER) | payer MEDICAID, OTHER ==
[2020-01-10] MEDS ORDERED: Sodium Chloride 0.9% 1,000 ML IV ONE (11:13)
--- NOTE | 2020-01-10 11:26 | EDM.PDOC ---
ED HPI GENERAL MEDICAL PROBLEM - General Chief Complaint: Trauma Stated Complaint: BACK PAIN 7 MO PG Time Seen by Provider: 01/10/20 11:38 Source of Information: Reports: Patient History Limitations: Reports: No Limitations - History of Present Illness INITIAL COMMENTS - FREE TEXT/NARRATIVE: 29-year-old female, 27 wks , presenting to ER because she was vomiting felt lightheaded and fainted. Denied head trauma denied neck trauma. No chest pain no shortness of breath. Reported lower vaginal pressure pelvic pain. Lower back contractions. Abdomen Pain Score (Numeric/FACES): 7 - Related Data Allergies Allergy/AdvReac Type Severity Reaction Status Date / Time codeine Allergy Rash Verified 01/10/20 12:09 latex Allergy Hives Verified 01/10/20 12:09 Penicillins Allergy Rash Verified 01/10/20 12:09 Home Meds: Home Meds Acetaminophen [Tylenol] 650 mg PO ASDIRECTED PRN 09/28/19 [History] #103/Iron Fumarate/Fa [ ] 1 tab PO DAILY 09/28/19 [ History] busPIRone HCl [Buspirone HCl] 15 mg PO BID 12/15/19 [History] Past Medical History - Past Health History Medical/Surgical History: Denies Medical/Surgical History HEENT History: Reports: None Cardiovascular History: Reports: None Respiratory History: Reports: None Gastrointestinal History: Reports: None Genitourinary History: Reports: None 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 AND FINANCIAL SERVICES AGENT History: Reports: Spontaneous , Other (See Below) Other INSURANCE AND FINANCIAL SERVICES AGENT History: still Musculoskeletal History: Reports: None Neurological History: Reports: Other (See Below) Other Neuro History: post conscussion syndrome Psychiatric History: Reports: Anxiety, Depression, PTSD Endocrine/Metabolic History: Reports: None Hematologic History: Reports: None Immunologic History: Reports: None Oncologic (Cancer) History: Reports: None Dermatologic History: Reports: None - Infectious Disease History Infectious Disease History: Reports: None - Past Surgical History Head Surgeries/Procedures: Reports: None HEENT Surgical History: Reports: Other (See Below) Other HEENT Surgeries/Procedures: Brachial cleft cysts removal Cardiovascular Surgical History: Reports: None Respiratory Surgical History: Reports: None GI Surgical History: Reports: Cholecystectomy Female Surgical History: Reports: None Endocrine Surgical History: Reports: None Neurological Surgical History: Reports: None Musculoskeletal Surgical History: Reports: None Oncologic Surgical History: Reports: None Dermatological Surgical History: Reports: None Social & Family History - Family History Family Medical History: Noncontributory - Tobacco Use Smoking Status *Q: Never Smoker Second Hand Smoke Exposure: No - Caffeine Use Caffeine Use: Reports: Soda - Recreational Drug Use Recreational Drug Use: Yes Recreational Drug Type: Reports: Marijuana/Hashish Review of Systems - Review of Systems Review Of Systems: Comprehensive ROS is negative, except as noted in HPI. ED EXAM, GENERAL - Physical Exam Exam: See Below Exam Limited By: No Limitations General Appearance: Alert, WD/WN, No Apparent Distress Nose: Normal Inspection Head: Atraumatic, Normocephalic Neck: Normal Inspection, Supple, Non-Tender Respiratory/Chest: No Respiratory Distress, Lungs Clear Cardiovascular: Regular Rate, Rhythm GI/Abdominal: Soft Rectal (Female) Exam: Deferred Back Exam: Normal Inspection, Full Range of Motion, Other (no c spine tenderness ). No: Vertebral Tenderness Extremities: Normal Inspection, Normal Range of Motion Neurological: Alert, Oriented Psychiatric: Normal Affect Skin Exam: Warm EKG INTERPRETATION Rhythm: NSR QRS: Normal ST-T: Normal QT: Normal Course - Vital Signs Last Recorded V/S: Last Vital Signs Temp 98.3 F 01/10/20 10:54 Pulse 98 01/10/20 10:54 Resp 17 01/10/20 10:54 BP 140/75 01/10/20 10:54 Pulse Ox 98 01/10/20 10:54 - Orders/Labs/Meds Orders: Active Orders 24 hr Category Date Time Status EKG 12 Lead [EKG Documentation Completion] [RC] ROUTINE Care 01/10/20 11:10 Active Labs: Laboratory Tests 01/10/20 01/10/20 01/10/20 Range/Units 11:00 11:00 11:02 WBC 11.16 H (4.0-11.0) K/uL RBC 4.21 L (4.30-5.90) M/uL Hgb 12.0 (12.0-16.0) g/dL Hct 35.5 L (36.0-46.0) % MCV 84.3 (80.0-98.0) fL MCH 28.5 (27.0-32.0) pg MCHC 33.8 (31.0-37.0) g/dL RDW Std Deviation 40.5 (28.0-62.0) fl RDW Coeff of Arlene 13 (11.0-15.0) % Plt Count 303 (150-400) K/uL MPV 9.50 (7.40-12.00) fL Neut % (Auto) 71.6 (48.0-80.0) % Lymph % (Auto) 17.4 (16.0-40.0) % [place] % (Auto) 9.4 (0.0-15.0) % Eos % (Auto) 1.2 (0.0-7.0) % Baso % (Auto) 0.4 (0.0-1.5) % Neut # (Auto) 8.0 H (1.4-5.7) K/uL Lymph # (Auto) 1.9 (0.6-2.4) K/uL [place] # (Auto) 1.1 H (0.0-0.8) K/uL Eos # (Auto) 0.1 (0.0-0.7) K/uL Baso # (Auto) 0.0 (0.0-0.1) K/uL Nucleated RBC % 0.0 /100WBC Nucleated RBCs # 0 K/uL Sodium 139 (136-145) mmol/L Potassium 3.9 (3.5-5.1) mmol/L Chloride 105 (98-107) mmol/L Carbon Dioxide 21.5 (21.0-32.0) mmol/L BUN 8 (7.0-18.0) mg/dL Creatinine 0.5 L (0.6-1.0) mg/dL Est Cr Clr Drug Dosing 140.78 mL/min Estimated GFR (MDRD) > 60.0 ml/min Glucose 84 (74-106) mg/dL POC Glucose 85 (60-110) mg/dL Calcium 8.4 L (8.5-10.1) mg/dL Total Bilirubin 0.2 (0.2-1.0) mg/dL AST 18 (15-37) IU/L ALT 51 (14-63) IU/L Alkaline Phosphatase 90 (46-116) U/L Total Protein 6.8 (6.4-8.2) g/dL Albumin 2.5 L (3.4-5.0) g/dL Globulin 4.3 H (2.6-4.0) g/dL Albumin/Globulin Ratio 0.6 L (0.9-1.6) Lipase 92 (73-393) U/L Urine Color Urine Appearance Urine pH (5.0-8.0) Ur Specific [place] (1.001-1.035) Urine Protein (NEGATIVE) mg/dL Urine Glucose (UA) (NEGATIVE) mg/dL Urine Ketones (NEGATIVE) mg/dL Urine Occult Blood (NEGATIVE) Urine Nitrite (NEGATIVE) Urine Bilirubin (NEGATIVE) Urine Urobilinogen (<2.0) EU/dL Ur Leukocyte Esterase (NEGATIVE) 01/10/20 Range/Units 11:28 WBC (4.0-11.0) K/uL RBC (4.30-5.90) M/uL Hgb (12.0-16.0) g/dL Hct (36.0-46.0) % MCV (80.0-98.0) fL MCH (27.0-32.0) pg MCHC (31.0-37.0) g/dL RDW Std Deviation (28.0-62.0) fl RDW Coeff of Arlene (11.0-15.0) % Plt Count (150-400) K/uL MPV (7.40-12.00) fL Neut % (Auto) (48.0-80.0) % Lymph % (Auto) (16.0-40.0) % [place] % (Auto) (0.0-15.0) % Eos % (Auto) (0.0-7.0) % Baso % (Auto) (0.0-1.5) % Neut # (Auto) (1.4-5.7) K/uL Lymph # (Auto) (0.6-2.4) K/uL [place] # (Auto) (0.0-0.8) K/uL Eos # (Auto) (0.0-0.7) K/uL Baso # (Auto) (0.0-0.1) K/uL Nucleated RBC % /100WBC Nucleated RBCs # K/uL Sodium (136-145) mmol/L Potassium (3.5-5.1) mmol/L Chloride (98-107) mmol/L Carbon Dioxide (21.0-32.0) mmol/L BUN (7.0-18.0) mg/dL Creatinine (0.6-1.0) mg/dL Est Cr Clr Drug Dosing mL/min Estimated GFR (MDRD) ml/min Glucose (74-106) mg/dL POC Glucose (60-110) mg/dL Calcium (8.5-10.1) mg/dL Total Bilirubin (0.2-1.0) mg/dL AST (15-37) IU/L ALT (14-63) IU/L Alkaline Phosphatase (46-116) U/L Total Protein (6.4-8.2) g/dL Albumin (3.4-5.0) g/dL Globulin (2.6-4.0) g/dL Albumin/Globulin Ratio (0.9-1.6) Lipase (73-393) U/L Urine Color YELLOW Urine Appearance CLEAR Urine pH 6.0 (5.0-8.0) Ur Specific [place] 1.025 (1.001-1.035) Urine Protein NEGATIVE (NEGATIVE) mg/dL Urine Glucose (UA) NEGATIVE (NEGATIVE) mg/dL Urine Ketones NEGATIVE (NEGATIVE) mg/dL Urine Occult Blood NEGATIVE (NEGATIVE) Urine Nitrite NEGATIVE (NEGATIVE) Urine Bilirubin NEGATIVE (NEGATIVE) Urine Urobilinogen 0.2 (<2.0) EU/dL Ur Leukocyte Esterase NEGATIVE (NEGATIVE) Meds: Medications Discontinued Medications Generic Name Dose Route Start Last Admin Trade Name Freq PRN Reason Stop Dose Admin Sodium Chloride 1,000 mls @ 999 mls/hr 01/10/20 11:13 01/10/20 12:18 Normal Saline IV 01/10/20 12:13 Not Given BOLUS ONE - Re-Assessments/Exams Free Text/Narrative Re-Assessment/Exam: 01/10/20 11:40 Patient fell from standing, syncope likely vasovagal from her nausea and vomiting. I was concerned about premature labor. Placental pathology. No head trauma. no Spine tenderness. EKG was sinus. Patient cleared for further work-up and monitoring at the OB unit Departure - Departure Time of Disposition: 11:26 Disposition: Still A Patient 30 Clinical Impression: Fall - Discharge Information Instructions: Fall Prevention in the Home, Adult, [id number] Referrals: PCP,None [Primary Care Provider] - Forms: ED Department Discharge Additional Instructions: The following information is given to patients seen in the emergency department who are being discharged to home. This information is to outline your options for follow-up care. We provide all patients seen in our emergency department with a follow-up referral. The need for follow-up, as well as the timing and circumstances, are variable depending upon the specifics of your emergency department visit. If you don't have a primary care physician on staff, we will provide you with a referral. We always advise you to contact your personal physician following an emergency department visit to inform them of the circumstance of the visit and for follow-up with them and/or the need for any referrals to a consulting specialist. The emergency department will also refer you to a specialist when appropriate. This referral assures that you have the opportunity for follow-up care with a specialist. All of these measure are taken in an effort to provide you with optimal care, which includes your follow-up. Under all circumstances we always encourage you to contact your private physician who remains a resource for coordinating your care. When calling for follow-up care, please make the office aware that this follow-up is from your recent emergency room visit. If for any reason you are refused follow-up, please contact the [facility] Emergency Department at and asked to speak to the emergency department charge nurse. [facility] [address] [place] [id number] [address] Sepsis Event Note - Evaluation Sepsis Screening Result: No Definite Risk - Focused Exam Vital Signs: Vital Signs Temp Pulse Resp BP Pulse Ox 01/10/20 10:54 98.3 F 98 17 140/75 98 Date Exam was Performed: 01/10/20 Time Exam was Performed: 20:27 - My Orders Last 24 Hours: My Active Orders 01/10/20 11:10 EKG 12 Lead [EKG Documentation Completion] [RC] ROUTINE - Assessment/Plan Last 24 Hours: My Active Orders 01/10/20 11:10 EKG 12 Lead [EKG Documentation Completion] [RC] ROUTINE
[2020-01-10 11:41] LABS: BLOOD UREA NITROGEN,BUN 8 mg/dL (7.0-18.0); CARBON DIOXIDE,CO2 21.5 mmol/L (21.0-32.0); CHLORIDE,CL 105 mmol/L (98-107); GLUCOSE RANDOM 84 mg/dL (74-106); LIPASE 92 U/L (73-393); POTASSIUM,K 3.9 mmol/L (3.5-5.1); SODIUM,NA 139 mmol/L (136-145)
== END 2020-01-10 11:31 | disposition home or self-care (01) ==
LOC: MW.ED 10:54
DX: O99.89 Other specified diseases and conditions complicating pregnancy, childbirth and the puerperium (principal); R10.2 Pelvic and perineal pain; R11.2 Nausea with vomiting, unspecified; Z3A.27 27 weeks gestation of pregnancy; Z91.040 Latex allergy status; Z88.5 Allergy status to narcotic agent; Z88.0 Allergy status to penicillin; W19.XXXA Unspecified fall, initial encounter
CPT/HCPCS: 36415; 59025; 80053; 81003; 82962; 83690; 85025; 93005; 99284-25; 99285

== ENCOUNTER 2020-04-08 13:48 | Inpatient (IN) | payer MEDICAID ==
[2020-04-08] MEDS ORDERED: Misoprostol 25 MCG (1/4 of 100 MCG) Tab VAG PRN ×2 (14:23)
[2020-04-08] MEDS ORDERED: Terbutaline 1 MG/ML SDV SUBCUT PRN (14:23)
[2020-04-08] MEDS ORDERED: Misoprostol 200 MCG Tab PO PRN (14:25)
[2020-04-08] MEDS ORDERED: Butorphanol 1 MG/ML SDV IVPUSH PRN (14:25)
[2020-04-08] MEDS ORDERED: Sodium Chloride 0.9% 2.5 ML Syringe FLUSH PRN (14:25)
[2020-04-08] MEDS ORDERED: Sodium Chloride 0.9% 10 ML SDV IV PRN (14:25)
[2020-04-08] MEDS ORDERED: Water For Irrigation,Sterile 1,000 ML Container IRR PRN (14:25)
[2020-04-08] MEDS ORDERED: Methylergonovine 0.2 MG/1 ML Amp IM PRN (14:25)
[2020-04-08] MEDS ORDERED: Sodium Chloride 0.9% 10 ML Syringe FLUSH PRN (14:25)
[2020-04-08] MEDS ORDERED: Lidocaine 1% 50 ML MDV INJECT PRN (14:25)
[2020-04-08] MEDS ORDERED: Nalbuphine 10 MG/1 ML Vial IVPUSH PRN (14:25)
[2020-04-08] MEDS ORDERED: Carboprost Tromethamine 250 MCG/1 ML Amp IM PRN (14:25)
[2020-04-08] MEDS ORDERED: Tranexamic Acid 1,000 MG in Sodium Chloride 0.9% 100 ML IV PRN (14:25)
[2020-04-08] MEDS ORDERED: Oxytocin/0.9 % Sodium Chloride 30 UNIT/500 ML BAG IV SCH ×2 (14:30)
--- NOTE | 2020-04-08 14:51 | PCM.LDHP ---
L&D History of Present Illness - General Date of Service: 04/08/20 Admit Problem/Dx: Patient Status Order with Admit Dx/Problem 04/08/20 14:03 Patient Status [ADT] Routine Admission Diagnosis/Problem Admission Diagnosis/Problem 04/08/20 14:45 at 39 3/7 week (MARLEEN: 04/12/20); reports loss of fluid, amnisure positive; SVE 4cm/70%/-3 per nurse report; A+, rubella immune, GBS+ Source of Information: Patient History Limitations: Reports: No Limitations - Related Data Allergies/Adverse Reactions: Allergies Allergy/AdvReac Type Severity Reaction Status Date / Time codeine Allergy Difficulty Verified 04/08/20 14:22 Swallowing diphtheria, pertussis, Allergy Anaphylactic Verified 04/08/20 14:22 tetanus vacc Shock latex Allergy Hives Verified 01/10/20 12:09 Penicillins Allergy Rash Verified 04/08/20 14:22 Home Medications: Home Meds Acetaminophen [Tylenol] 650 mg PO ASDIRECTED PRN 09/28/19 [History] #103/Iron Fumarate/Fa [ ] 1 tab PO DAILY 09/28/19 [ History] busPIRone HCl [Buspirone HCl] 15 mg PO BID 12/15/19 [History] Escitalopram Oxalate 20 mg PO DAILY 04/01/20 [History] Past Medical History - Past Health History Medical/Surgical History: Denies Medical/Surgical History HEENT History: Reports: None Cardiovascular History: Reports: None Respiratory History: Reports: None Gastrointestinal History: Reports: None Genitourinary History: Reports: None 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 History: Reports: Spontaneous , Other (See Below) Other OB/BYN History: still Musculoskeletal History: Reports: None Neurological History: Reports: Other (See Below) Other Neuro History: post conscussion syndrome Psychiatric History: Reports: Anxiety, Depression, PTSD Endocrine/Metabolic History: Reports: None Hematologic History: Reports: None Immunologic History: Reports: None Oncologic (Cancer) History: Reports: None Dermatologic History: Reports: None - Infectious Disease History Infectious Disease History: Reports: None - Past Surgical History Head Surgeries/Procedures: Reports: None HEENT Surgical History: Reports: Other (See Below) Other HEENT Surgeries/Procedures: Brachial cleft cysts removal Cardiovascular Surgical History: Reports: None Respiratory Surgical History: Reports: None GI Surgical History: Reports: Cholecystectomy Female Surgical History: Reports: None Endocrine Surgical History: Reports: None Neurological Surgical History: Reports: None Musculoskeletal Surgical History: Reports: None Oncologic Surgical History: Reports: None Dermatological Surgical History: Reports: None Social & Family History - Family History Family Medical History: Noncontributory - Caffeine Use Caffeine Use: Reports: Soda H&P Review of Systems - Review of Systems: Review Of Systems: See Below General: Reports: No Symptoms HEENT: Reports: No Symptoms Pulmonary: Reports: No Symptoms Cardiovascular: Reports: No Symptoms Gastrointestinal: Reports: No Symptoms Genitourinary: Reports: No Symptoms Musculoskeletal: Reports: No Symptoms Skin: Reports: No Symptoms Psychiatric: Reports: No Symptoms Neurological: Reports: No Symptoms Hematologic/Lymphatic: Reports: No Symptoms Immunologic: Reports: No Symptoms L&D Exam - Exam Exam: See Below - Vital Signs Weight: 619 lb 7.983 oz - OB Specific Movement: Active Heart Tones: Present Heart Rate (FHR) Variability: Moderate (6-25 bmp) - Florian Score Florian Score Cervix Position: Posterior Florian Score Consistency: Soft Florian Score Effacement: 51-70% Florian Score Dilation: 3-4 cm Florian Score Infant's Station: -3 Florian Score Total: 6 - Exam General: Alert, Oriented, Cooperative Lungs: Normal Respiratory Effort Cardiovascular: Regular Rate, Regular Rhythm GI/Abdominal Exam: Soft, Non-Tender Rectal Exam: Deferred Genitourinary: Deferred Back Exam: Normal Inspection, Full Range of Motion Extremities: Normal Inspection, Normal Range of Motion, Non-Tender, Normal Capillary Refill Skin: Warm, Dry, Intact Neurological: Strength Equal Bilateral, Normal Gait, Normal Speech, Normal Tone , Sensation Intact Psychiatric: Alert, Normal Affect, Normal Mood - Patient Data Lab Results Last 24 hrs: Laboratory Results - last 24 hr 04/08/20 Range/Units 13:50 Membrane Rupture POSITIVE - Problem List (1) Supervision of normal IUP (intrauterine ) in primigravida SNOMED Code(s): 34091395, 417065362, 082704495, 252463223 ICD Code: Z34.00 - ENCNTR FOR SUPRVSN OF NORMAL FIRST , UNSP TRIMESTER Status: Acute Priority: High Current Visit: Yes Qualifiers: Trimester: third trimester Qualified Code(s): Z34.03 - Encounter for supervision of normal first , third trimester Problem List Initiated/Reviewed/Updated: Yes Orders Last 24hrs: Active Orders 24 hr Category Date Time Status Patient Status [ADT] Routine ADT 04/08/20 14:03 Active Communication Order [RC] ASDIRECTED Care 04/08/20 14:23 Active Communication Order [RC] ASDIRECTED Care 04/08/20 14:23 Active Communication Order [RC] ASDIRECTED Care 04/08/20 14:23 Active Heart Tones [RC] CONTINUOUS Care 04/08/20 14:27 Active Non Stress Test [RC] PER UNIT ROUTINE Care 04/08/20 14:03 Active Notify Provider [RC] PRN Care 04/08/20 14:23 Active Notify Provider [RC] PRN Care 04/08/20 14:23 Active Notify Provider [RC] PRN Care 04/08/20 14:27 Active Notify Provider [RC] STAT Care 04/08/20 14:23 Active Up ad Shalini [RC] ASDIRECTED Care 04/08/20 14:03 Active Up ad Shalini [RC] ASDIRECTED Care 04/08/20 14:27 Active Vaginal Exam [RC] Click to Edit Care 04/08/20 14:03 Active Vaginal Exam [RC] PRN Care 04/08/20 14:23 Active Vital Signs [RC] PER UNIT ROUTINE Care 04/08/20 14:03 Active CBC W/O DIFF,HEMOGRAM [HEME] Routine Lab 04/08/20 14:27 Ordered RPR (SYPHILIS SERO) W/ RFLX [REF] Routine Lab 04/08/20 14:27 Ordered TYPE AND SCREEN [BBK] Routine Lab 04/08/20 14:27 Ordered Butorphanol [Stadol] Med 04/08/20 14:25 Active 1 mg IVPUSH Q1H PRN Carboprost Tromethamine [Hemabate DS] Med 04/08/20 14:25 Active 250 mcg IM ASDIRECTED PRN Clindamycin Phosphate in D5W [Cleocin in D5W] 600 mg Med 04/08/20 14:30 Active Premix Bag 1 bag IV Q6H Lactated Ringers [Ringers, Lactated] 1,000 ml Med 04/08/20 14:30 Active IV ASDIRECTED Lidocaine 1% [Xylocaine 1%] Med 04/08/20 14:25 Active 50 ml INJECT ONETIME PRN Methylergonovine [Methergine] Med 04/08/20 14:25 Active 0.2 mg IM ASDIRECTED PRN Nalbuphine [Nubain] Med 04/08/20 14:25 Active 10 mg IVPUSH Q1H PRN Oxytocin/0.9 % Sodium Chloride [Oxytocin 30 Unit/500 ML Med 04/08/20 14:30 Active -NS] 30 unit in 500 ml IV TITRATE Oxytocin/0.9 % Sodium Chloride [Oxytocin 30 Unit/500 ML Med 04/08/20 14:30 Active -NS] 30 unit in 500 ml IV TITRATE Sodium Chloride 0.9% [Normal Saline] Med 04/08/20 14:25 Active 10 ml IV ASDIRECTED PRN Sodium Chloride 0.9% [Saline Flush] Med 04/08/20 14:25 Active 10 ml FLUSH ASDIRECTED PRN Sodium Chloride 0.9% [Saline Flush] Med 04/08/20 14:25 Active 2.5 ml FLUSH ASDIRECTED PRN Terbutaline [Brethine] Med 04/08/20 14:23 Active 0.25 mg SUBCUT ASDIRECTED PRN Tranexamic Acid [Cyklokapron] 1,000 mg Med 04/08/20 14:25 Active Sodium Chloride 0.9% [Normal Saline] 100 ml IV ONETIME Water For Irrigation,Sterile [Sterile Water for Med 04/08/20 14:25 Active Irrigation] 1,000 ml IRR ASDIRECTED PRN miSOPROStoL [Cytotec] Med 04/08/20 14:25 Active 200 mcg PO ONETIME PRN miSOPROStoL [Cytotec] Med 04/08/20 14:23 Active 25 mcg VAG ONETIME PRN miSOPROStoL [Cytotec] Med 04/08/20 14:23 Active 25 mcg VAG Q4H PRN Medication Administration Instruction [OM.PC] Q3H Oth 04/08/20 14:30 Ordered Peripheral IV Insertion Adult [OM.PC] Routine Oth 04/08/20 14:27 Ordered Resuscitation Status Routine Resus Stat 04/08/20 14:03 Ordered Medication Orders Butorphanol Tartrate (Stadol) 1 mg IVPUSH Q1H PRN PRN Reason: Pain Carboprost Tromethamine (Hemabate Ds) 250 mcg IM ASDIRECTED PRN PRN Reason: Post Hemorrhage Oxytocin/Sodium Chloride (Oxytocin 30 Unit/500 Ml-Ns) 30 unit in 500 mls @ 2 mls/hr IV TITRATE REBEKAH; Protocol Lactated Ringer's (Ringers, Lactated) 1,000 mls @ 150 mls/hr IV ASDIRECTED REBEKAH Oxytocin/Sodium Chloride (Oxytocin 30 Unit/500 Ml-Ns) 30 unit in 500 mls @ 500 mls/hr IV TITRATE REBEKAH Tranexamic Acid 1,000 mg/ (Sodium Chloride) 110 mls @ 660 mls/hr IV ONETIME PRN PRN Reason: Bleeding Clindamycin Phosphate 600 mg/ (Premix) 50 mls @ 100 mls/hr IV Q6H REBEKAH Lidocaine HCl (Xylocaine 1%) 50 ml INJECT ONETIME PRN PRN Reason: Laceration repair Methylergonovine Maleate (Methergine) 0.2 mg IM ASDIRECTED PRN PRN Reason: Post Hemorrhage Misoprostol (Cytotec) 25 mcg VAG ONETIME PRN PRN Reason: Cervical Ripening Misoprostol (Cytotec) 25 mcg VAG Q4H PRN PRN Reason: Cervical Ripening Misoprostol (Cytotec) 200 mcg PO ONETIME PRN PRN Reason: Post Hemorrhage Nalbuphine HCl (Nubain) 10 mg IVPUSH Q1H PRN PRN Reason: Pain (severe 7-10) Sodium Chloride (Saline Flush) 10 ml FLUSH ASDIRECTED PRN PRN Reason: Keep Vein Open Sodium Chloride (Saline Flush) 2.5 ml FLUSH ASDIRECTED PRN PRN Reason: Keep Vein Open Sodium Chloride (Normal Saline) 10 ml IV ASDIRECTED PRN PRN Reason: IV Use Sterile Water (Sterile Water For Irrigation) 1,000 ml IRR ASDIRECTED PRN PRN Reason: delivery Terbutaline Sulfate (Brethine) 0.25 mg SUBCUT ASDIRECTED PRN PRN Reason: Tacysystole Assessment/Plan Comment:: Admit A: at 39 3/7 week (MARLEEN: 04/12/20); reports loss of fluid, amnisure positive; SVE 4cm/70%/-3 per nurse report; A+, rubella immune, GBS+ P: Admit for labor; clindamycin for GBS prophylaxis due to penicillin allergy; pitocin PRN; epidural PRN; anticipate ; Dr. Chaparro updated
[2020-04-08] MEDS: Lactated Ringers 1,000 ML IV SCH ×2 (15:02→18:05)
[2020-04-08] MEDS: Clindamycin Phosphate in D5W 600 MG in Premix Bag 1 BAG IV SCH ×4 (15:03→22:03)
[2020-04-08] MEDS ORDERED: Ropivacaine 0.2% PF 2 MG/ML 20 ML SDV ONE (17:25)
[2020-04-08] MEDS ORDERED: fentaNYL/Bupivacaine-NS 2 MCG/ML-0.125%/PF 100 ML Bag EP ONE (17:25)
--- NOTE | 2020-04-08 17:59 | PCM.PREANE ---
Preanesthetic Assessment - Procedure Proposed Procedure: labor epidural - Anesthesia/Transfusion/Family Hx Anesthesia History: No Prior Anesthesia Family History of Anesthesia Reaction: No Transfusion History: No Prior Transfusion(s) - Review of Systems General: No Symptoms Pulmonary: No Symptoms Cardiovascular: No Symptoms Gastrointestinal: No Symptoms Neurological: No Symptoms Other: Reports: None - Physical Assessment Height: 5 ft 4 in Weight: 281 kg ASA Class: 2 Mental Status: Alert & Oriented x3 Airway Class: Mallampati = 1 Dentition: Reports: Normal Dentition Thyro-Mental Finger Breadths: 3 Mouth Opening Finger Breadths: 3 ROM/Head Extension: Full Lungs: Clear to Auscultation, Normal Respiratory Effort Cardiovascular: Regular Rate, Regular Rhythm - Lab Values: Laboratory Last Values WBC 8.97 K/uL (4.0-11.0) 04/08/20 15: RBC 4.11 M/uL (4.30-5.90) L 04/08/20 15:19 Hgb 11.5 g/dL (12.0-16.0) L 04/08/20 15:19 Hct 34.5 % (36.0-46.0) L 04/08/20 15:19 MCV 83.9 fL (80.0-98.0) 04/08/20 15:19 MCH 28.0 pg (27.0-32.0) 04/08/20 15:19 MCHC 33.3 g/dL (31.0-37.0) 04/08/20 15:19 RDW Std Deviation 41.8 fl (28.0-62.0) 04/08/20 15:19 RDW Coeff of Arlene 14 % (11.0-15.0) 04/08/20 15:19 Plt Count 256 K/uL (150-400) 04/08/20 15:19 MPV 10.70 fL (7.40-12.00) 04/08/20 15:19 Nucleated RBC % 0.0 /100WBC 04/08/20 15:19 Nucleated RBCs # 0 K/uL 04/08/20 15:19 Membrane Rupture POSITIVE 04/08/20 13:50 Blood Type A POSITIVE 04/08/20 15:19 Antibody Screen NEGATIVE 04/08/20 15:19 - Allergies Allergies/Adverse Reactions: Allergies Allergy/AdvReac Type Severity Reaction Status Date / Time codeine Allergy Difficulty Verified 04/08/20 14:22 Swallowing diphtheria, pertussis, Allergy Anaphylactic Verified 04/08/20 14:22 tetanus vacc Shock latex Allergy Hives Verified 01/10/20 12:09 Penicillins Allergy Rash Verified 04/08/20 14:22 - Blood Blood Available: Yes Product(s) Available: PRBC - Anesthesia Plan Pre-Op Medication Ordered: None - Acknowledgements Anesthesia Type Planned: Epidural Pt an Appropriate Candidate for the Planned Anesthesia: Yes Alternatives and Risks of Anesthesia Discussed w Pt/Guardian: Yes Pt/Guardian Understands and Agrees with Anesthesia Plan: Yes PreAnesthesia Questionnaire - Past Health History Medical/Surgical History: Denies Medical/Surgical History HEENT History: Reports: None Cardiovascular History: Reports: None Respiratory History: Reports: None Gastrointestinal History: Reports: None Genitourinary History: Reports: None 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 POT 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 History: Reports: Spontaneous , Other (See Below) Other OB/BYN History: still Musculoskeletal History: Reports: None Neurological History: Reports: Other (See Below) Other Neuro History: post conscussion syndrome Psychiatric History: Reports: Anxiety, Depression, PTSD Endocrine/Metabolic History: Reports: None Hematologic History: Reports: None Immunologic History: Reports: None Oncologic (Cancer) History: Reports: None Dermatologic History: Reports: None - Infectious Disease History Infectious Disease History: Reports: None - Past Surgical History Head Surgeries/Procedures: Reports: None HEENT Surgical History: Reports: Other (See Below) Other HEENT Surgeries/Procedures: Brachial cleft cysts removal Cardiovascular Surgical History: Reports: None Respiratory Surgical History: Reports: None GI Surgical History: Reports: Cholecystectomy Female Surgical History: Reports: None Endocrine Surgical History: Reports: None Neurological Surgical History: Reports: None Musculoskeletal Surgical History: Reports: None Oncologic Surgical History: Reports: None Dermatological Surgical History: Reports: None - HOME MEDS Home Medications: Home Meds Acetaminophen [Tylenol] 650 mg PO ASDIRECTED PRN 09/28/19 [History] #103/Iron Fumarate/Fa [ ] 1 tab PO DAILY 09/28/19 [ History] busPIRone HCl [Buspirone HCl] 15 mg PO BID 12/15/19 [History] Escitalopram Oxalate 20 mg PO DAILY 04/01/20 [History] - CURRENT (IN HOUSE) MEDS Current Meds: Current Medications Butorphanol Tartrate (Stadol) 1 mg IVPUSH Q1H PRN PRN Reason: Pain Carboprost Tromethamine (Hemabate Ds) 250 mcg IM ASDIRECTED PRN PRN Reason: Post Hemorrhage Oxytocin/Sodium Chloride (Oxytocin 30 Unit/500 Ml-Ns) 30 unit in 500 mls @ 2 mls/hr IV TITRATE REBEKAH; Protocol Last Titration: 04/08/20 17:50 Dose: 8 munits/min, 8 mls/hr Lactated Ringer's (Ringers, Lactated) 1,000 mls @ 150 mls/hr IV ASDIRECTED REBEKAH Last Infusion: 04/08/20 17:02 Dose: 999 mls/hr Oxytocin/Sodium Chloride (Oxytocin 30 Unit/500 Ml-Ns) 30 unit in 500 mls @ 500 mls/hr IV TITRATE REBEKAH Tranexamic Acid 1,000 mg/ (Sodium Chloride) 110 mls @ 660 mls/hr IV ONETIME PRN PRN Reason: Bleeding Clindamycin Phosphate 600 mg/ (Premix) 50 mls @ 100 mls/hr IV Q6H REBEKAH Last Admin: 04/08/20 15:03 Dose: 100 mls/hr Lidocaine HCl (Xylocaine 1%) 50 ml INJECT ONETIME PRN PRN Reason: Laceration repair Methylergonovine Maleate (Methergine) 0.2 mg IM ASDIRECTED PRN PRN Reason: Post Hemorrhage Misoprostol (Cytotec) 25 mcg VAG ONETIME PRN PRN Reason: Cervical Ripening Misoprostol (Cytotec) 25 mcg VAG Q4H PRN PRN Reason: Cervical Ripening Misoprostol (Cytotec) 200 mcg PO ONETIME PRN PRN Reason: Post Hemorrhage Nalbuphine HCl (Nubain) 10 mg IVPUSH Q1H PRN PRN Reason: Pain (severe 7-10) Last Admin: 04/08/20 16:43 Dose: 10 mg Sodium Chloride (Saline Flush) 10 ml FLUSH ASDIRECTED PRN PRN Reason: Keep Vein Open Sodium Chloride (Saline Flush) 2.5 ml FLUSH ASDIRECTED PRN PRN Reason: Keep Vein Open Sodium Chloride (Normal Saline) 10 ml IV ASDIRECTED PRN PRN Reason: IV Use Sterile Water (Sterile Water For Irrigation) 1,000 ml IRR ASDIRECTED PRN PRN Reason: delivery Terbutaline Sulfate (Brethine) 0.25 mg SUBCUT ASDIRECTED PRN PRN Reason: Tacysystole Discontinued Medications Ropivacaine (Naropin 0.2%) Confirm Administered Dose 20 ml .ROUTE .[facility] ONE Stop: 04/08/20 17:26
[2020-04-08] MEDS ORDERED: Bupivacaine 0.5% 10 ML SDV ONE (18:15)
--- NOTE | 2020-04-08 21:42 | PCM.DEL ---
L & D Note - General Info Date of Service: 04/08/20 Mother's Due Date: 04/12/20 - Delivery Note Labor: Spontaneous, Augmented by Oxytocin Delivery Outcome: Livebirth Infant Delivery Method: Spontaneous Vaginal Delivery-Single Presentation: Vertex Nuchal Cord: None Anesthesia Type: Epidural Episiotomy Type: None Laceration: Labial Suture type: Vicryl Suture size: 3-0 Placenta: Intact, Spontaneous Cord: 3 Vessels Estimated Blood Loss: 500 Resuscitation Needed: No Score 1 min: 7 Score 5 min: 9 Second Stage Interventions: Reports: Second Nurse Assessed Progress of Descent, Second Nurse Reviewed Contraction Pattern, Second Nurse Reviewed Heart Tones, Encouragement Given, Pushing Effectively, Pushing, Pulls Own Legs Back Delivery Comments (Free Text/Narrative):: viable female; head delivered with good pushing, shoulders and body followed easily after; meconium-stained fluid; baby to mom's abdomen skin-to- skin for assessment; APGARs 7/9; 6 lb 8 oz; placenta delivered grossly intact, 3VC, EBL 500 mL; labial laceration repaired with 3-0 vicryl; pitocin to IVF; mom and baby left in stable condition with nurse at bedside for assessment - General Info Date of Service: 04/08/20 Admission Dx/Problem (Free Text): Patient Status Order with Admit Dx/Problem 04/08/20 14:03 Patient Status [ADT] Routine Admission Diagnosis/Problem Admission Diagnosis/Problem 04/08/20 14:45 at 39 3/7 week (MARLEEN: 04/12/20); reports loss of fluid, amnisure positive; SVE 4cm/70%/-3 per nurse report; A+, rubella immune, GBS+ Functional Status: Reports: Pain Controlled - Review of Systems General: Reports: No Symptoms HEENT: Reports: No Symptoms Pulmonary: Reports: No Symptoms Cardiovascular: Reports: No Symptoms Gastrointestinal: Reports: No Symptoms Genitourinary: Reports: No Symptoms Musculoskeletal: Reports: No Symptoms Skin: Reports: No Symptoms Neurological: Reports: No Symptoms Psychiatric: Reports: No Symptoms - Patient Data Weight - Most Recent: 619 lb 7.983 oz Lab Results Last 24 Hours: Laboratory Results - last 24 hr 04/08/20 04/08/20 04/08/20 Range/Units 13:50 15:19 15:19 WBC 8.97 (4.0-11.0) K/uL RBC 4.11 L (4.30-5.90) M/uL Hgb 11.5 L (12.0-16.0) g/dL Hct 34.5 L (36.0-46.0) % MCV 83.9 (80.0-98.0) fL MCH 28.0 (27.0-32.0) pg MCHC 33.3 (31.0-37.0) g/dL RDW Std Deviation 41.8 (28.0-62.0) fl RDW Coeff of Arlene 14 (11.0-15.0) % Plt Count 256 (150-400) K/uL MPV 10.70 (7.40-12.00) fL Nucleated RBC % 0.0 /100WBC Nucleated RBCs # 0 K/uL Membrane Rupture POSITIVE Blood Type A POSITIVE Antibody Screen NEGATIVE Med Orders - Current: Current Medications Butorphanol Tartrate (Stadol) 1 mg IVPUSH Q1H PRN PRN Reason: Pain Carboprost Tromethamine (Hemabate Ds) 250 mcg IM ASDIRECTED PRN PRN Reason: Post Hemorrhage Oxytocin/Sodium Chloride (Oxytocin 30 Unit/500 Ml-Ns) 30 unit in 500 mls @ 2 mls/hr IV TITRATE REBEKAH; Protocol Last Titration: 04/08/20 20:38 Dose: 999 mls/hr Lactated Ringer's (Ringers, Lactated) 1,000 mls @ 150 mls/hr IV ASDIRECTED REBEKAH Last Infusion: 04/08/20 18:20 Dose: 150 mls/hr Oxytocin/Sodium Chloride (Oxytocin 30 Unit/500 Ml-Ns) 30 unit in 500 mls @ 500 mls/hr IV TITRATE REBEKAH Tranexamic Acid 1,000 mg/ (Sodium Chloride) 110 mls @ 660 mls/hr IV ONETIME PRN PRN Reason: Bleeding Clindamycin Phosphate 600 mg/ (Premix) 50 mls @ 100 mls/hr IV Q6H REBEKAH Last Admin: 04/08/20 15:03 Dose: 100 mls/hr Lidocaine HCl (Xylocaine 1%) 50 ml INJECT ONETIME PRN PRN Reason: Laceration repair Methylergonovine Maleate (Methergine) 0.2 mg IM ASDIRECTED PRN PRN Reason: Post Hemorrhage Last Admin: 04/08/20 20:51 Dose: 0.2 mg Misoprostol (Cytotec) 25 mcg VAG ONETIME PRN PRN Reason: Cervical Ripening Misoprostol (Cytotec) 25 mcg VAG Q4H PRN PRN Reason: Cervical Ripening Misoprostol (Cytotec) 200 mcg PO ONETIME PRN PRN Reason: Post Hemorrhage Nalbuphine HCl (Nubain) 10 mg IVPUSH Q1H PRN PRN Reason: Pain (severe 7-10) Last Admin: 04/08/20 16:43 Dose: 10 mg Sodium Chloride (Saline Flush) 10 ml FLUSH ASDIRECTED PRN PRN Reason: Keep Vein Open Sodium Chloride (Saline Flush) 2.5 ml FLUSH ASDIRECTED PRN PRN Reason: Keep Vein Open Sodium Chloride (Normal Saline) 10 ml IV ASDIRECTED PRN PRN Reason: IV Use Sterile Water (Sterile Water For Irrigation) 1,000 ml IRR ASDIRECTED PRN PRN Reason: delivery Terbutaline Sulfate (Brethine) 0.25 mg SUBCUT ASDIRECTED PRN PRN Reason: Tacysystole Discontinued Medications Bupivacaine HCl (Sensorcaine-Mpf 0.5%) Confirm Administered Dose 10 ml .ROUTE .[facility] ONE Stop: 04/08/20 18:16 Ropivacaine (Naropin 0.2%) Confirm Administered Dose 20 ml .ROUTE .STK-MED ONE Stop: 04/08/20 17:26 - Exam General: Alert, Oriented, Cooperative, No Acute Distress Lungs: Normal Respiratory Effort Cardiovascular: Regular Rate, Regular Rhythm GI/Abdominal Exam: Soft, Non-Tender (Female) Exam: Normal External Exam, Normal Bimanual Exam, Other (Labial tear ) Back Exam: Normal Inspection Extremities: Normal Inspection, Normal Capillary Refill Skin: Warm, Dry, Intact Neurological: No New Focal Deficit, Normal Speech, Normal Tone Psy/Mental Status: Alert, Normal Affect, Normal Mood - Problem List & Annotations (1) Supervision of normal IUP (intrauterine ) in primigravida SNOMED Code(s): 82709921, 380784315, 373858607, 510215197 Code(s): Z34.00 - ENCNTR FOR SUPRVSN OF NORMAL FIRST , UNSP TRIMESTER Status: Acute Priority: High Current Visit: Yes Qualifiers: Trimester: third trimester Qualified Code(s): Z34.03 - Encounter for supervision of normal first , third trimester (2) (spontaneous vaginal delivery) SNOMED Code(s): 025465185 Code(s): O80 - ENCOUNTER FOR FULL-TERM UNCOMPLICATED DELIVERY Status: Acute Priority: High Current Visit: Yes - Problem List Review Problem List Initiated/Reviewed/Updated: Yes - My Orders Last 24 Hours: My Active Orders 04/08/20 14:03 Patient Status [ADT] Routine Non Stress Test [RC] PER UNIT ROUTINE Up ad Shalini [RC] ASDIRECTED Vaginal Exam [RC] Click to Edit Vital Signs [RC] PER UNIT ROUTINE Resuscitation Status Routine 04/08/20 14:23 Communication Order [RC] ASDIRECTED Communication Order [RC] ASDIRECTED Communication Order [RC] ASDIRECTED Notify Provider [RC] PRN Notify Provider [RC] PRN Notify Provider [RC] STAT Vaginal Exam [RC] PRN Terbutaline [Brethine] 0.25 mg SUBCUT ASDIRECTED PRN miSOPROStoL [Cytotec] 25 mcg VAG ONETIME PRN miSOPROStoL [Cytotec] 25 mcg VAG Q4H PRN 04/08/20 14:25 Butorphanol [Stadol] 1 mg IVPUSH Q1H PRN Carboprost Tromethamine [Hemabate DS] 250 mcg IM ASDIRECTED PRN Lidocaine 1% [Xylocaine 1%] 50 ml INJECT ONETIME PRN Methylergonovine [Methergine] 0.2 mg IM ASDIRECTED PRN Nalbuphine [Nubain] 10 mg IVPUSH Q1H PRN Sodium Chloride 0.9% [Normal Saline] 10 ml IV ASDIRECTED PRN Sodium Chloride 0.9% [Saline Flush] 10 ml FLUSH ASDIRECTED PRN Sodium Chloride 0.9% [Saline Flush] 2.5 ml FLUSH ASDIRECTED PRN Tranexamic Acid [Cyklokapron] 1,000 mg Sodium Chloride 0.9% [Normal Saline] 100 ml IV ONETIME Water For Irrigation,Sterile [Sterile Water for Irrigation] 1,000 ml IRR ASDIRECTED PRN miSOPROStoL [Cytotec] 200 mcg PO ONETIME PRN 04/08/20 14:27 Heart Tones [RC] CONTINUOUS Notify Provider [RC] PRN Up ad Shalini [RC] ASDIRECTED Peripheral IV Insertion Adult [OM.PC] Routine 04/08/20 14:30 Clindamycin Phosphate in D5W [Cleocin in D5W] 600 mg Premix Bag 1 bag IV Q6H Lactated Ringers [Ringers, Lactated] 1,000 ml IV ASDIRECTED Oxytocin/0.9 % Sodium Chloride [Oxytocin 30 Unit/500 ML-NS] 30 unit in 500 ml IV TITRATE Oxytocin/0.9 % Sodium Chloride [Oxytocin 30 Unit/500 ML-NS] 30 unit in 500 ml IV TITRATE Medication Administration Instruction [OM.PC] Q3H 04/08/20 14:44 Patient Status [ADT] Routine 04/08/20 15:19 RPR (SYPHILIS SERO) W/ RFLX [REF] Routine - Plan Plan:: Admit A: at 39 3/7 week (MARLEEN: 04/12/20); reports loss of fluid, amnisure positive; SVE 4cm/70%/-3 per nurse report; A+, rubella immune, GBS+ P: Admit for labor; clindamycin for GBS prophylaxis due to penicillin allergy; pitocin PRN; epidural PRN; anticipate ; Dr. Chaparro updated Labor A: viable female; APGARs 7/9; 6 lbs 8 oz; placenta delivered grossly intact , 3VC; EBL 500 mL; labial laceration repaired with 3-0 vicryl; pitocin to IVF; mom and baby left in stable condition with nurse at bedside for assessment P: Routine plan of care; Dr. Chaparro updated.
[2020-04-08] MEDS ORDERED: hydrOXYzine HCl 25 MG Tab PO PRN (21:45)
[2020-04-08] MEDS ORDERED: Acetaminophen 500 MG Tab PO PRN (22:21)
[2020-04-08] MEDS ORDERED: Docusate Sodium 100 MG Cap PO PRN (22:21)
[2020-04-08] MEDS ORDERED: Ibuprofen 400 MG Tab PO PRN (22:21)
[2020-04-08] MEDS ORDERED: Lanolin 100% Cream 7 GM Tube TOP PRN (22:21)
[2020-04-08] MEDS ORDERED: Bisacodyl 10 MG Supp RECTAL PRN (22:21)
[2020-04-08] MEDS: Witch Hazel Medicated Pads 40/Jar TOP PRN (22:39)
[2020-04-08] MEDS: Benzocaine/Menthol 20%-0.5% Spray 78 GM Cannister TOP PRN (22:39)
--- NOTE | 2020-04-09 00:38 | PCM48HPAN ---
Post Anesthesia Note - EVALUATION WITHIN 48HRS OF ANESTHETIC Vital Signs in Normal Range: Yes Patient Participated in Evaluation: Yes Respiratory Function Stable: Yes Airway Patent: Yes Cardiovascular Function Stable: Yes Hydration Status Stable: Yes Pain Control Satisfactory: Yes Nausea and Vomiting Control Satisfactory: Yes Mental Status Recovered: Yes - COMMENTS/OBSERVATIONS Free Text/Narrative:: full sensation in legs bilaterally
[2020-04-09] MEDS: Ibuprofen 800 MG Tab PO PRN ×3 (07:04→20:09)
--- NOTE | 2020-04-09 08:30 | PCM.PNPP ---
- General Info Date of Service: 04/09/20 Admission Dx/Problem (Free Text): Patient Status Order with Admit Dx/Problem 04/08/20 14:03 Patient Status [ADT] Routine Admission Diagnosis/Problem Admission Diagnosis/Problem 04/08/20 14:45 at 39 3/7 week (MARLEEN: 04/12/20); reports loss of fluid, amnisure positive; SVE 4cm/70%/-3 per nurse report; A+, rubella immune, GBS+ Functional Status: Reports: Pain Controlled, Tolerating Diet, Ambulating, Urinating - Review of Systems General: Reports: No Symptoms HEENT: Reports: No Symptoms Pulmonary: Reports: No Symptoms Cardiovascular: Reports: No Symptoms Gastrointestinal: Reports: No Symptoms Genitourinary: Reports: No Symptoms Musculoskeletal: Reports: No Symptoms Skin: Reports: No Symptoms Neurological: Reports: No Symptoms Psychiatric: Reports: No Symptoms - General Info Date of Service: 04/09/20 - Patient Data Vital Signs - Most Recent: Last Vital Signs Temp 98.3 F 04/09/20 07:50 Pulse 91 04/09/20 07:50 Resp 18 04/09/20 07:50 BP 115/61 04/09/20 07:50 Pulse Ox 96 04/09/20 07:50 Weight - Most Recent: 281 lb Lab Results - Last 24 Hours: Laboratory Results - last 24 hr 04/08/20 04/08/20 04/08/20 Range/Units 13:50 15:19 15:19 WBC 8.97 (4.0-11.0) K/uL RBC 4.11 L (4.30-5.90) M/uL Hgb 11.5 L (12.0-16.0) g/dL Hct 34.5 L (36.0-46.0) % MCV 83.9 (80.0-98.0) fL MCH 28.0 (27.0-32.0) pg MCHC 33.3 (31.0-37.0) g/dL RDW Std Deviation 41.8 (28.0-62.0) fl RDW Coeff of Arlene 14 (11.0-15.0) % Plt Count 256 (150-400) K/uL MPV 10.70 (7.40-12.00) fL Nucleated RBC % 0.0 /100WBC Nucleated RBCs # 0 K/uL Membrane Rupture POSITIVE Blood Type A POSITIVE Antibody Screen NEGATIVE 04/09/20 Range/Units 06:15 WBC (4.0-11.0) K/uL RBC (4.30-5.90) M/uL Hgb 8.3 L (12.0-16.0) g/dL Hct 25.1 L (36.0-46.0) % MCV (80.0-98.0) fL MCH (27.0-32.0) pg MCHC (31.0-37.0) g/dL RDW Std Deviation (28.0-62.0) fl RDW Coeff of Arlene (11.0-15.0) % Plt Count (150-400) K/uL MPV (7.40-12.00) fL Nucleated RBC % /100WBC Nucleated RBCs # K/uL Membrane Rupture Blood Type Antibody Screen Med Orders - Current: Current Medications Acetaminophen (Tylenol Extra Strength) 500 mg PO Q4H PRN PRN Reason: Pain Acetaminophen (Tylenol Extra Strength) 1,000 mg PO Q4H PRN PRN Reason: Pain Benzocaine/Menthol (Dermoplast Pain Relief 20%-0.5% [place]) 78 gm TOP ASDIRECTED PRN PRN Reason: Perineal Comfort Measure Last Admin: 04/08/20 22:39 Dose: 1 can Bisacodyl (Dulcolax) 10 mg RECTAL ONETIME PRN PRN Reason: Constipation Butorphanol Tartrate (Stadol) 1 mg IVPUSH Q1H PRN PRN Reason: Pain Carboprost Tromethamine (Hemabate Ds) 250 mcg IM ASDIRECTED PRN PRN Reason: Post Hemorrhage Docusate Sodium (Colace) 100 mg PO BID PRN PRN Reason: Constipation Emollient Ointment (Lansinoh Hpa) 0 gm TOP ASDIRECTED PRN PRN Reason: Sore Nipples Hydroxyzine HCl (Atarax) 25 mg PO Q6H PRN PRN Reason: Itching Last Admin: 04/09/20 00:50 Dose: 25 mg Oxytocin/Sodium Chloride (Oxytocin 30 Unit/500 Ml-Ns) 30 unit in 500 mls @ 2 mls/hr IV TITRATE REBEKAH; Protocol Last Titration: 04/08/20 20:38 Dose: 999 mls/hr Lactated Ringer's (Ringers, Lactated) 1,000 mls @ 150 mls/hr IV ASDIRECTED REBEKAH Last Infusion: 04/08/20 18:20 Dose: 150 mls/hr Oxytocin/Sodium Chloride (Oxytocin 30 Unit/500 Ml-Ns) 30 unit in 500 mls @ 500 mls/hr IV TITRATE [facility] Tranexamic Acid 1,000 mg/ (Sodium Chloride) 110 mls @ 660 mls/hr IV ONETIME PRN PRN Reason: Bleeding Ibuprofen (Motrin) 400 mg PO Q4H PRN PRN Reason: Pain Ibuprofen (Motrin) 800 mg PO Q6H PRN PRN Reason: Pain Last Admin: 04/09/20 07:04 Dose: 800 mg Lidocaine HCl (Xylocaine 1%) 50 ml INJECT ONETIME PRN PRN Reason: Laceration repair Methylergonovine Maleate (Methergine) 0.2 mg IM ASDIRECTED PRN PRN Reason: Post Hemorrhage Last Admin: 04/08/20 20:51 Dose: 0.2 mg Misoprostol (Cytotec) 25 mcg VAG ONETIME PRN PRN Reason: Cervical Ripening Misoprostol (Cytotec) 25 mcg VAG Q4H PRN PRN Reason: Cervical Ripening Misoprostol (Cytotec) 200 mcg PO ONETIME PRN PRN Reason: Post Hemorrhage Nalbuphine HCl (Nubain) 10 mg IVPUSH Q1H PRN PRN Reason: Pain (severe 7-10) Last Admin: 04/08/20 16:43 Dose: 10 mg Sodium Chloride (Saline Flush) 10 ml FLUSH ASDIRECTED PRN PRN Reason: Keep Vein Open Sodium Chloride (Saline Flush) 2.5 ml FLUSH ASDIRECTED PRN PRN Reason: Keep Vein Open Sodium Chloride (Normal Saline) 10 ml IV ASDIRECTED PRN PRN Reason: IV Use Sterile Water (Sterile Water For Irrigation) 1,000 ml IRR ASDIRECTED PRN PRN Reason: delivery Terbutaline Sulfate (Brethine) 0.25 mg SUBCUT ASDIRECTED PRN PRN Reason: Tacysystole Witch Sari (Tucks) 1 pad TOP ASDIRECTED PRN PRN Reason: comfort care Last Admin: 04/08/20 22:39 Dose: 1 tub Discontinued Medications Bupivacaine HCl (Sensorcaine-Mpf 0.5%) Confirm Administered Dose 10 ml .ROUTE .STK-MED ONE Stop: 04/08/20 18:16 Last Admin: 04/08/20 22:04 Dose: Not Given Clindamycin Phosphate 600 mg/ (Premix) 50 mls @ 100 mls/hr IV Q6H REBEKAH Last Admin: 04/08/20 22:03 Dose: Not Given Ropivacaine (Naropin 0.2%) Confirm Administered Dose 20 ml .ROUTE .STK-MED ONE Stop: 04/08/20 17:26 Last Admin: 04/08/20 22:03 Dose: Not Given - Interaction Disposition, : to Nursery Interaction: Not Applicable Infant Feeding: Attempted ; Nursed Fair/Poor Support Person: Significant Other - Recovery Exam Fundal Tone: Firm Fundal Level: At Umbilicus Fundal Placement: Midline Lochia Amount: Scant Lochia Color: Rubra/Red Perineum Description: Intact, Minimal Bruising/Swelling Episiotomy/Laceration: Approximated Bladder Status: Voiding Urinary Elimination: Voided - Exam General: Alert, Oriented, Cooperative, No Acute Distress Lungs: Normal Respiratory Effort Cardiovascular: Regular Rate, Regular Rhythm GI/Abdominal Exam: Soft, Non-Tender Extremities: Normal Inspection, Normal Range of Motion, Non-Tender, Normal Capillary Refill Skin: Warm, Dry, Intact Wound/Incisions: Healing Well Neurological: No New Focal Deficit, Normal Gait, Normal Speech, Normal Tone Psy/Mental Status: Alert, Normal Affect, Normal Mood - Problem List & Annotations (1) Supervision of normal IUP (intrauterine ) in primigravida SNOMED Code(s): 31333407, 218973104, 517264348, 695138001 Code(s): Z34.00 - ENCNTR FOR SUPRVSN OF NORMAL FIRST , UNSP TRIMESTER Status: Acute Priority: High Current Visit: Yes Qualifiers: Trimester: third trimester Qualified Code(s): Z34.03 - Encounter for supervision of normal first , third trimester (2) (spontaneous vaginal delivery) SNOMED Code(s): 690818307 Code(s): O80 - ENCOUNTER FOR FULL-TERM UNCOMPLICATED DELIVERY Status: Acute Priority: High Current Visit: Yes - Problem List Review Problem List Initiated/Reviewed/Updated: Yes - My Orders Last 24 Hours: My Active Orders 04/08/20 14:03 Vital Signs [RC] PER UNIT ROUTINE Resuscitation Status Routine 04/08/20 14:23 Terbutaline [Brethine] 0.25 mg SUBCUT ASDIRECTED PRN miSOPROStoL [Cytotec] 25 mcg VAG ONETIME PRN miSOPROStoL [Cytotec] 25 mcg VAG Q4H PRN 04/08/20 14:25 Butorphanol [Stadol] 1 mg IVPUSH Q1H PRN Carboprost Tromethamine [Hemabate DS] 250 mcg IM ASDIRECTED PRN Lidocaine 1% [Xylocaine 1%] 50 ml INJECT ONETIME PRN Methylergonovine [Methergine] 0.2 mg IM ASDIRECTED PRN Nalbuphine [Nubain] 10 mg IVPUSH Q1H PRN Sodium Chloride 0.9% [Normal Saline] 10 ml IV ASDIRECTED PRN Sodium Chloride 0.9% [Saline Flush] 10 ml FLUSH ASDIRECTED PRN Sodium Chloride 0.9% [Saline Flush] 2.5 ml FLUSH ASDIRECTED PRN Tranexamic Acid [Cyklokapron] 1,000 mg Sodium Chloride 0.9% [Normal Saline] 100 ml IV ONETIME Water For Irrigation,Sterile [Sterile Water for Irrigation] 1,000 ml IRR ASDIRECTED PRN miSOPROStoL [Cytotec] 200 mcg PO ONETIME PRN 04/08/20 14:27 Notify Provider [RC] PRN Up ad Shalini [RC] ASDIRECTED Peripheral IV Insertion Adult [OM.PC] Routine 04/08/20 14:30 Lactated Ringers [Ringers, Lactated] 1,000 ml IV ASDIRECTED Oxytocin/0.9 % Sodium Chloride [Oxytocin 30 Unit/500 ML-NS] 30 unit in 500 ml IV TITRATE Oxytocin/0.9 % Sodium Chloride [Oxytocin 30 Unit/500 ML-NS] 30 unit in 500 ml IV TITRATE Medication Administration Instruction [OM.PC] Q3H 04/08/20 15:19 RPR (SYPHILIS SERO) W/ RFLX [REF] Routine 04/08/20 20:45 Patient Status [ADT] Routine 04/08/20 21:45 hydrOXYzine HCL [Atarax] 25 mg PO Q6H PRN 04/08/20 22:21 May Shower [RC] ASDIRECTED Acetaminophen [Tylenol Extra Strength] 1,000 mg PO Q4H PRN Acetaminophen [Tylenol Extra Strength] 500 mg PO Q4H PRN Benzocaine/Menthol [Dermoplast Pain Relief 20%-0.5% [place]] 78 gm TOP ASDIRECTED PRN Docusate Sodium [Colace] 100 mg PO BID PRN Ibuprofen [Motrin] 400 mg PO Q4H PRN Ibuprofen [Motrin] 800 mg PO Q6H PRN Lanolin [Lansinoh HPA] See Dose Instructions TOP ASDIRECTED PRN bisacodyL [Dulcolax] 10 mg RECTAL ONETIME PRN witch Sari [Tucks] 1 pad TOP ASDIRECTED PRN Assess Lochia [WOMSER] Per Unit Routine Assess Uterine Involution [WOMSER] Per Unit Routine Peripheral IV Discontinue [OM.PC] Routine - Plan Plan:: Admit A: at 39 3/7 week (MARLEEN: 04/12/20); reports loss of fluid, amnisure positive; SVE 4cm/70%/-3 per nurse report; A+, rubella immune, GBS+ P: Admit for labor; clindamycin for GBS prophylaxis due to penicillin allergy; pitocin PRN; epidural PRN; anticipate ; Dr. Chaparro updated Labor A: viable female; APGARs 7/9; 6 lbs 8 oz; placenta delivered grossly intact , 3VC; EBL 500 mL; labial laceration repaired with 3-0 vicryl; pitocin to IVF; mom and baby left in stable condition with nurse at bedside for assessment P: Routine plan of care; Dr. Chaparro updated. PP Day 1 A: Ambulating, voiding, and eating well; ; reports small lochia rubra. P: Routine plan of care; Dr. Chaparro updated.
[2020-04-09] MEDS: Acetaminophen 500 MG Tab PO PRN ×2 (11:17→15:31)
[2020-04-09] MEDS: Witch Hazel Medicated Pads 40/Jar TOP PRN (17:06)
[2020-04-09] MEDS: Benzocaine/Menthol 20%-0.5% Spray 78 GM Cannister TOP PRN (17:06)
[2020-04-10] MEDS: Ibuprofen 800 MG Tab PO PRN ×3 (01:58→15:58)
--- NOTE | 2020-04-10 07:59 | PCM.DCSUM1 ---
Discharge Summary - Hospital Course Free Text/Narrative:: Discharge home with baby. Follow up in the clinic in 6 weeks for routine visit. Diagnosis: Stroke: No Modified [place] Scale: No Symptoms at All Modified [place] Scale Score: 0 - Discharge Data Discharge Date: 04/10/20 Discharge Disposition: Home, Self-Care 01 Condition: Good - Referral to Home Health Primary Care Physician: PCP Unknown - Discharge Diagnosis/Problem(s) (1) Supervision of normal IUP (intrauterine ) in primigravida SNOMED Code(s): 20017072, 881377760, 447457913, 891191456 ICD Code: Z34.00 - ENCNTR FOR SUPRVSN OF NORMAL FIRST , UNSP TRIMESTER Status: Acute Priority: High Current Visit: Yes Qualifiers: Trimester: third trimester Qualified Code(s): Z34.03 - Encounter for supervision of normal first , third trimester (2) (spontaneous vaginal delivery) SNOMED Code(s): 033209953 ICD Code: O80 - ENCOUNTER FOR FULL-TERM UNCOMPLICATED DELIVERY Status: Acute Priority: High Current Visit: Yes - Patient Instructions Diet: Regular Diet as Tolerated, Drink 8-10+ Glasses/Day Activity: As Tolerated, No Strenuous Activities, Rest and Relax Today Driving: May Drive Today Showering/Bathing: May Shower Wound/Incision Care: Keep Operative Site/Wound Site Clean and Dry Notify Provider of: Fever, Increased Pain, Swelling and Redness, Drainage, Nausea and/or Vomiting - Discharge Plan *PRESCRIPTION DRUG MONITORING PROGRAM REVIEWED*: Not Applicable *COPY OF PRESCRIPTION DRUG MONITORING REPORT IN PATIENT IVON: Not Applicable Prescriptions/Med Rec: hydrOXYzine HCL [Hydroxyzine HCl] 25 mg PO Q6H PRN #60 tablet PRN Reason: Itching Ibuprofen [Motrin] 800 mg PO Q6H PRN #90 tablet PRN Reason: Pain Home Medications: Home Meds Acetaminophen [Tylenol] 650 mg PO ASDIRECTED PRN 09/28/19 [History] #103/Iron Fumarate/Fa [ ] 1 tab PO DAILY 09/28/19 [ History] busPIRone HCl [Buspirone HCl] 15 mg PO BID 12/15/19 [History] Escitalopram Oxalate 20 mg PO DAILY 04/01/20 [History] Ibuprofen [Motrin] 800 mg PO Q6H PRN #90 tablet 04/10/20 [Rx] hydrOXYzine HCL [Hydroxyzine HCl] 25 mg PO Q6H PRN #60 tablet 04/10/20 [Rx] Oxygen Therapy Mode: Room Air - Discharge Summary/Plan Comment DC Time >30 min.: Yes - General Info Date of Service: 04/10/20 Admission Dx/Problem (Free Text: Patient Status Order with Admit Dx/Problem 04/08/20 14:03 Patient Status [ADT] Routine Admission Diagnosis/Problem Admission Diagnosis/Problem 04/08/20 14:45 at 39 3/7 week (MARLEEN: 04/12/20); reports loss of fluid, amnisure positive; SVE 4cm/70%/-3 per nurse report; A+, rubella immune, GBS+ Functional Status: Reports: Pain Controlled, Tolerating Diet, Ambulating, Urinating - Review of Systems General: Reports: No Symptoms HEENT: Reports: No Symptoms Pulmonary: Reports: No Symptoms Cardiovascular: Reports: No Symptoms Gastrointestinal: Reports: No Symptoms Genitourinary: Reports: No Symptoms Musculoskeletal: Reports: No Symptoms Skin: Reports: No Symptoms Neurological: Reports: No Symptoms Psychiatric: Reports: No Symptoms - Patient Data Vitals - Most Recent: Last Vital Signs Temp 96.6 F L 04/10/20 04:55 Pulse 83 04/10/20 04:55 Resp 17 04/10/20 04:55 BP 122/77 04/10/20 04:55 Pulse Ox 98 04/10/20 04:55 Weight - Most Recent: 281 lb Med Orders - Current: Current Medications Acetaminophen (Tylenol Extra Strength) 500 mg PO Q4H PRN PRN Reason: Pain Acetaminophen (Tylenol Extra Strength) 1,000 mg PO Q4H PRN PRN Reason: Pain Last Admin: 04/09/20 15:31 Dose: 1,000 mg Benzocaine/Menthol (Dermoplast Pain Relief 20%-0.5% [place]) 78 gm TOP ASDIRECTED PRN PRN Reason: Perineal Comfort Measure Last Admin: 04/09/20 17:06 Dose: 1 can Bisacodyl (Dulcolax) 10 mg RECTAL ONETIME PRN PRN Reason: Constipation Butorphanol Tartrate (Stadol) 1 mg IVPUSH Q1H PRN PRN Reason: Pain Carboprost Tromethamine (Hemabate Ds) 250 mcg IM ASDIRECTED PRN PRN Reason: Post Hemorrhage Docusate Sodium (Colace) 100 mg PO BID PRN PRN Reason: Constipation Emollient Ointment (Lansinoh Hpa) 0 gm TOP ASDIRECTED PRN PRN Reason: Sore Nipples Hydroxyzine HCl (Atarax) 25 mg PO Q6H PRN PRN Reason: Itching Last Admin: 04/09/20 00:50 Dose: 25 mg Oxytocin/Sodium Chloride (Oxytocin 30 Unit/500 Ml-Ns) 30 unit in 500 mls @ 2 mls/hr IV TITRATE REBEKAH; Protocol Last Titration: 04/08/20 20:38 Dose: 999 mls/hr Lactated Ringer's (Ringers, Lactated) 1,000 mls @ 150 mls/hr IV ASDIRECTED REBEKAH Last Infusion: 04/08/20 18:20 Dose: 150 mls/hr Oxytocin/Sodium Chloride (Oxytocin 30 Unit/500 Ml-Ns) 30 unit in 500 mls @ 500 mls/hr IV TITRATE REBEKAH Tranexamic Acid 1,000 mg/ (Sodium Chloride) 110 mls @ 660 mls/hr IV ONETIME PRN PRN Reason: Bleeding Ibuprofen (Motrin) 400 mg PO Q4H PRN PRN Reason: Pain Ibuprofen (Motrin) 800 mg PO Q6H PRN PRN Reason: Pain Last Admin: 04/10/20 01:58 Dose: 800 mg Lidocaine HCl (Xylocaine 1%) 50 ml INJECT ONETIME PRN PRN Reason: Laceration repair Methylergonovine Maleate (Methergine) 0.2 mg IM ASDIRECTED PRN PRN Reason: Post Hemorrhage Last Admin: 04/08/20 20:51 Dose: 0.2 mg Misoprostol (Cytotec) 25 mcg VAG ONETIME PRN PRN Reason: Cervical Ripening Misoprostol (Cytotec) 25 mcg VAG Q4H PRN PRN Reason: Cervical Ripening Misoprostol (Cytotec) 200 mcg PO ONETIME PRN PRN Reason: Post Hemorrhage Nalbuphine HCl (Nubain) 10 mg IVPUSH Q1H PRN PRN Reason: Pain (severe 7-10) Last Admin: 04/08/20 16:43 Dose: 10 mg Sodium Chloride (Saline Flush) 10 ml FLUSH ASDIRECTED PRN PRN Reason: Keep Vein Open Sodium Chloride (Saline Flush) 2.5 ml FLUSH ASDIRECTED PRN PRN Reason: Keep Vein Open Sodium Chloride (Normal Saline) 10 ml IV ASDIRECTED PRN PRN Reason: IV Use Sterile Water (Sterile Water For Irrigation) 1,000 ml IRR ASDIRECTED PRN PRN Reason: delivery Terbutaline Sulfate (Brethine) 0.25 mg SUBCUT ASDIRECTED PRN PRN Reason: Tacysystole Witch Sari (Tucks) 1 pad TOP ASDIRECTED PRN PRN Reason: comfort care Last Admin: 04/09/20 17:06 Dose: 1 tub Discontinued Medications Bupivacaine HCl (Sensorcaine-Mpf 0.5%) Confirm Administered Dose 10 ml .ROUTE .STK-MED ONE Stop: 04/08/20 18:16 Last Admin: 04/08/20 22:04 Dose: Not Given Fentanyl/Bupivacaine HCl (Sdfbyljm-Ripxl-Hs 2 Mcg/Ml-0.125%) 100 ml EP .STK- MED ONE Stop: 04/08/20 17:26 Clindamycin Phosphate 600 mg/ (Premix) 50 mls @ 100 mls/hr IV Q6H REBEKAH Last Admin: 04/08/20 22:03 Dose: Not Given Ropivacaine (Naropin 0.2%) Confirm Administered Dose 20 ml .ROUTE .STK-MED ONE Stop: 04/08/20 17:26 Last Admin: 04/08/20 22:03 Dose: Not Given - Exam General: Reports: Alert, Oriented, Cooperative, No Acute Distress Lungs: Reports: Normal Respiratory Effort Cardiovascular: Reports: Regular Rate, Regular Rhythm GI/Abdominal Exam: Soft, Non-Tender (Female) Exam: Deferred Rectal (Female) Exam: Deferred Back Exam: Reports: Full Range of Motion Extremities: Normal Inspection, Normal Range of Motion, Non-Tender, Normal Capillary Refill, Pedal Edema Skin: Reports: Warm, Dry, Intact Wound/Incisions: Reports: Healing Well Neurological: Reports: No New Focal Deficit, Normal Gait, Normal Speech, Normal Tone Psy/Mental Status: Reports: Alert, Normal Affect, Normal Mood
== END 2020-04-10 18:10 | disposition home or self-care (01) | DRG 807 ==
LOC: MW.OBCHECK 13:48 → MW.OB 13:49 → MW.OBCHECK 14:44 → MW.OB 14:44 → OBSVTOIN 20:37 → MW.OB 04-09 01:12
PROVIDERS: ADMIT Obstetrics & Gynecology; ATTEND Obstetrics & Gynecology
PROC: 10E0XZZ Delivery of Products of Conception, External Approach (ICD-10-PCS; principal; 2020-04-08)
PROC: 0HQ9XZZ Repair Perineum Skin, External Approach (ICD-10-PCS; 2020-04-08)
PROC: 3E0R3BZ Introduction of Anesthetic Agent into Spinal Canal, Percutaneous Approach (ICD-10-PCS; 2020-04-08)
DX: O99.824 Streptococcus B carrier state complicating childbirth (principal); Z37.0 Single live birth; F41.9 Anxiety disorder, unspecified; F32.9 Major depressive disorder, single episode, unspecified; F43.10 Post-traumatic stress disorder, unspecified; O70.0 First degree perineal laceration during delivery; O77.0 Labor and delivery complicated by meconium in amniotic fluid; Z3A.39 39 weeks gestation of pregnancy; Z88.5 Allergy status to narcotic agent; Z91.040 Latex allergy status; Z88.0 Allergy status to penicillin; Z88.7 Allergy status to serum and vaccine; Z79.899 Other long term (current) drug therapy
CPT/HCPCS: 36415; 59025; 59409; 84112; 85014; 85018; 85027; 86592; 86850; 86900; 86901; A9270-GY; J2210; J2300; J2590; J2795; J3490; J7120